=== PATIENT | male | born 1960 | race Caucasian/White ===

== ENCOUNTER 2019-06-26 11:14 | Inpatient (IN) | payer MEDICARE, SELFPAY ==
[2019-06-26 11:27] VITALS: BP 135/105; PULSE 124; RESP 18; O2SAT 100; BMI 23.0
--- NOTE | 2019-06-26 11:29 | ED_ITS ---
Entered by Caitie Gonzalez, acting as scribe for HPI - Fall General: Chief Complaint: Fall Stated Complaint: Leg pain Time Seen by Provider: 06/26/19 11:22 Source: patient Mode of arrival: ambulatory Limitations: no limitations History of Present Illness: HPI Narrative: 59 yo Male presents to ED with complaint of leg pain post fall. Pt states that he has sciatic nerve pain but yesterday he was going out the door and the wind caught the door and threw him on the ground. Pt states that he landed on his butt bone and hasn't been able to walk for a couple of days. Pt's friend states that the patient has been unable to lay flat at home. Pt states that he had a steroid shot for his sciatic nerve pain in the last week. MD complaint: fall Onset (ago): day(s) (2) Fall from: standing Fall witnessed: no Place fall occurred: home Loss of consciousness: None Prolonged down time: minute(s) (30) Symptoms prior to fall: none Location of injury: buttocks Location of injury - extremities: Left: thigh Severity: severe Associated symptoms-after fall: Reports difficulty walking; Denies abdominal pain, chest pain or neck pain Review of Systems General: Reports: 10 or more systems reviewed and unremarkable except in HPI and below Const: Denies: fever, chills or body aches Eyes: Denies: change in vision, blurry vision or blind spots ENMT: Denies: throat pain, enlarged tonsils, painful swallowing, hoarseness, mouth pain or swelling of lips/tongue Card: Denies: chest pain, palpitations, irregular heart rhythm, edema or swelling of feet/ankles Resp: Denies: shortness of breath, productive cough or non-productive cough GI: Denies: abdominal pain, nausea or vomiting : Denies: flank pain, painful urination, urinary frequency, urinary urgency or urinary hesitancy Musc: Reports: extremity pain; Denies: neck pain, back pain or extremity swelling Skin/Breast: Denies: rash, itching or redness Neuro: Reports: difficulty walking Endo: Denies: excessive urination, excessive thirst or tired all the time PFSH ED PFSH: Statuses (acute, chronic, etc) shown below reflect problem list status as previously entered and may not be historically accurate Social History (Updated 01/17/20 @ 10:39 by HÉCTOR Cardenas Smoking and tobacco status: current every day smoker Physical Exam Const: COMMON NORMALS: average body habitus, oriented x3, no limitations, heal thy appearing, alert and well nourished GENERAL APPEARANCE: in distress HENMT: COMMON NORMALS: normocephalic, head/scalp atraumatic and external ears normal HEAD & SCALP: normocephalic and atraumatic NOSE: external nose normal and nasal mucous membranes and turbinates normal EXTERNAL EAR: Yes external ears normal EXTERNAL AUDITORY CANAL: EAC's normal TYMPANIC MEMBRANE: TM's normal bilaterally Eye: COMMON NORMALS: PERRL, EOMs intact bilaterally, conjunctivae normal and no scleral icterus CONJUNCTIVA: Yes conjunctivae normal PUPIL: Yes PERRL DIRECT OPHTHALMOSCOPY: Yes no papilledema and Yes fundi normal bilaterally Neck/C-Spine: COMMON NORMALS: full ROM, supple, no meningeal signs, no JVD and no carotid bruits Chest: COMMONS NORMALS: inspection of chest normal and palpation of chest normal Resp: COMMON NORMALS: normal respiratory effort, no retractions, no use of accessory muscles, clear to auscultation bilaterally and percussion normal AUSCULTATION: clear to auscultation bilaterally PERCUSSION: percussion normal Cardio: COMMON NORMALS: no JVD, regular rate, regular rhythm, S1 normal heart sound, S2 normal heart sound, no gallops, no clicks, no murmurs, no rub and peripheral pulses 2+ throughout RATE: regular rate RHYTHM: regular rhythm HEART SOUNDS: S1 normal and S2 normal PERIPHERAL PULSES: pulses 2+ throughout GI: COMMON NORMALS: normal to inspection, nondistended, normoactive bowel sounds, soft to palpation, non-tender, no hepatosplenomegaly, no masses and no bruits PALPATION: Yes soft and Yes no hepatosplenomegaly : COMMON NORMALS: Yes no CVA tenderness BLADDER/KIDNEY EXAM: Yes no CVA tenderness Back/Pelvis: COMMON NORMALS: no CVA tenderness, thoracic and lumbar spine normal to inspection and no thoracic nor lumbar tenderness PELVIS: Yes no pain with lateral compression Extremity: COMMON NORMALS: normal to inspection, full ROM, normal capillary refill, no joint enlargement, no clubbing, cyanosis or edema, no calf tenderness and no pedal edema LEFT LOWER EXTREMITY: Yes hip joint Left hip: Yes pal pation (tender in the left hip laterally and posteriorly) Neuro: COMMON NORMALS: oriented x3 SENSORIUM/ORIENTATION: Yes alert MENINGEAL SIGNS: Yes no meningeal signs Skin: COMMON NORMALS: no rashes or lesions noted, no wounds, skin turgor normal, no jaundice, no petechiae and no mottling GENERAL SKIN EXAM: no rashes or lesions noted and turgor normal Course Consultations: Consultation #1: Dr. Fischer, orthopedic surgeon. Patient will need surgery. Since he had lunch today he will planning for surgery in the morning. N.p.o. from midnight. Time: 13:20 Consultation #2: Dr. Shah, hospitalist. He kindly accepted the patient to his service. Time: 13:25 Vital Signs: Vital signs: Vital Signs Pulse Rate 124 H 06/26/19 11:27 Respiratory Rate 18 06/26/19 11:27 Blood Pressure 135/105 06/26/19 11:27 Pulse Oximetry 100 06/26/19 11:27 MDM - Fall MDM Narrative: Medical decision making narrative: Patient with a left subcapital femoral fracture. He is admitted to the hospitalist service for surgery in the morning as he has had lunch today. Pain controlled in the emergency department. Lab Data: Labs: Lab Results 06/26/19 06/26/19 Range/Units 11:58 11:58 WBC 14.6 H (4.0-10.0) 10^3/ uL RBC 5.07 (4.1-5.3) 10^6/u L Hgb 13.8 (11.7-16.6) g/dL Hct 40.7 L (42.0-52.0) % MCV 80.3 (80-94) fL MCH 27.2 L (28.0-34.0) pg MCHC 33.9 (30.0-36.0) g/dL RDW 12.8 (12.1-15.1) % Plt Count 422 H (130-400) 10^3/c mm MPV 9.0 (7.4-10.4) fL Neut % (Auto) 79.5 % Lymph % (Auto) 7.8 % [place] % (Auto) 11.9 % Eos % (Auto) 0.0 % Baso % (Auto) 0.3 % Neut # (Auto) 11.7 H (1.8-7.7) 10^3/u L Lymph # (Auto) 1.1 (0.8-4.8) 10^3/u L [place] # (Auto) 1.7 H (0.2-0.9) 10^3/u L Eos # (Auto) 0.0 (0.0-0.8) 10^3/u L Baso # (Auto) 0.0 (0.0-0.1) 10^3/u L Nucleated RBC % (a uto) 0 % Nucleated RBCs # 0.0 /100WBC Sodium 131 L (136-145) mmol/L Potassium 3.8 (3.5-5.1) mmol/L Chloride 93 L (98-107) mmol/L Carbon Dioxide 22 (22-29) mmol/L Anion Gap 19.8 H (5-19) BUN 16 (6-20) mg/dL Creatinine 0.8 (0.7-1.2) mg/dL GFR Calculation 99.3 (90-130) mL/min Glucose 120 H (74-109) mg/dL Calcium 10.8 H (8.6-10.0) mg/Dl Total Bilirubin 1.0 (0.15-1.2) mg/dL AST 39 (0-40) U/L ALT 24 (0-41) U/L Alkaline Phosphata se 107 (40-130) IU/L Total Protein 7.9 (6.6-8.7) g/dL Albumin 4.4 (3.5-5.2) g/dL Globulin 3.5 (1.3-4.6) g/dL Imaging Data^: XR Left Hip: Radiologist's impression: [address] [address] XRay Report Signed Patient: Jhony Terrell #: [id number] : 1Acct#:[id number] Age/Sex: 59 / MADM Date: 06/26/19 Loc: ERRoom/Bed: Attending Dr: Ordering Provider/Ordering MD: Saba Khoury MD, [facility] Date of Service: 06/26/19 Procedure(s): XR hip LT 2-3V wo/w pel* [id number] Accession Number(s): [id number] Report Number: [id number] WS: [id number] LEFT HIP HISTORY: fall, hip pain. COMPARISON: None available. LEFT hip: Acute subcapital hip fracture. Fracture is impacted and demonstrates slight superior elevation. Superior displacement by 7 mm. Bones are mildly osteopenic. XR/XR hip LT 2-3V wo/w pel* [id number] IMPRESSION: Acute subcapital hip fracture with mild impaction and superior placement. 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
--- NOTE | 2019-06-26 11:35 | XR_ITS ---
WS: [id number] LEFT HIP HISTORY: fall, hip pain. COMPARISON: None available. LEFT hip: Acute subcapital hip fracture. Fracture is impacted and demonstrates slight superior elevat ion. Superior displacement by 7 mm. Bones are mildly osteopenic. XR/XR hip LT 2-3V wo/w pel* [id number] IMPRESSION: Acute subcapital hip fracture with mild impaction and superior placement.
[2019-06-26 12:07] LABS: Basophils % 0.3 %; Hematocrit 40.7 % (42.0-52.0); Hemoglobin 13.8 g/dL (11.7-16.6); Lymphocytes # 1.1 10^3/uL (0.8-4.8); Lymphocytes % 7.8 %; Mean Corpuscular HGB Conc 33.9 g/dL (30.0-36.0); Mean Corpuscular Hemoglobin 27.2 pg (28.0-34.0); Mean Corpuscular Volume 80.3 fL (80-94); Monocytes # 1.7 10^3/uL (0.2-0.9); Monocytes % 11.9 %; Neutrophils # 11.7 10^3/uL (1.8-7.7); Neutrophils % 79.5 %; Nucleated Red Blood Cells % 0 %; Platelet Count 422 10^3/cmm (130-400); Red Blood Count 5.07 10^6/uL (4.1-5.3); Red Cell Distribution Width 12.8 % (12.1-15.1); White Blood Count 14.6 10^3/uL (4.0-10.0)
[2019-06-26] MEDS: ketorolac 30 mg/mL INJ IVP (12:21)
[2019-06-26] MEDS: orphenadrine 30 mg/mL Inj 2 mL 60 MG IV (12:23)
[2019-06-26 13:03] LABS: Potassium 3.8 mmol/L (3.5-5.1); Sodium 131 mmol/L (136-145)
[2019-06-26 13:04] LABS: Alanine Aminotransferase 24 U/L (0-41); Albumin Level 4.4 g/dL (3.5-5.2); Alkaline Phosphatase 107 IU/L (40-130); Anion Gap 19.8 (5-19); Aspartate Amino Transferase 39 U/L (0-40); Blood Urea Nitrogen 16 mg/dL (6-20); Calcium 10.8 mg/Dl (8.6-10.0); Carbon Dioxide 22 mmol/L (22-29); Chloride 93 mmol/L (98-107); Globulin 3.5 g/dL (1.3-4.6); Glomerular Filtration Rate 99.3 mL/min (90-130); Glucose 120 mg/dL (74-109); Total Protein 7.9 g/dL (6.6-8.7)
--- NOTE | 2019-06-26 13:29 | PC.NURSE ---
Patient offered Morphine at this time. Patient states he feels like he is doing okay at this time, but this nurse will hold morphine incase he needs it later.
--- NOTE | 2019-06-26 14:23 | PC.NURSE ---
Patient stated he wanted to lay on the floor to get more comfortable because the mattress set up to high on the stretcher for him to get into the bed comfortably and he did not want to sit in the chair. Patient laid himself in the floor and states he prefers to stay in the floor. Offered to help patient into the bed, patient declined.
[2019-06-26 15:00] VITALS: BP 141/108; PULSE 96; RESP 16; O2SAT 99
--- NOTE | 2019-06-26 15:19 | ECG_ITS ---
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 [email or web address]
--- NOTE | 2019-06-26 15:19 | XR_ITS ---
WS: [id number] CHEST, 1 view. HISTORY: Pneumonia. COMPARISON: None available. Lungs are clear and well expanded. No pleural effusion or pneumothorax. Cardiac size: Normal. Mediastinum/Aorta: Normal mediastinum. No osseous abnormality seen. XR/XR chest 1V [id number] IMPRESSION: Unremarkable chest.
--- NOTE | 2019-06-26 15:20 | P.HP_ITS ---
Providers/Chief Complaint Primary Care Provider: Trupti Olivia Chief Complaint: Leg pain History of Present Illness Jhony Terrell is a 59 year old male past medical history of chronic smoking, THC use, depression, hypertension, CKD stage II who presents to the ER today after reportedly having a mechanical fall yesterday when he landed on his right side. Patient states since then he has been having pain in the left side of his hip so he came to the ER today. In the ER he was found to have left subcapital fracture of the hip. He denies of having any blood or difficulty in stream of urination, paresthesia, no numbness or tingling down the foot, abdominal pain, change in bowel movements, loss of weight. He does state that he has been having back pain with possible sciatica kind of pain going down the left side of his hip for which he thought 80 mg of methylprednisolone shot for the first time on June 21 by his primary care physician. He is also complaining of mild cough with greenish colored expectoration for last 4 days along with some runny nose but denies of having any fever, sick contacts or recent travels. Review of Systems General: Reports: 10 or more systems reviewed and unremarkable except in HPI and below Const: Denies: fever, chills, body aches, change in appetite, malaise, night sweats, diaphoresis, change in sleep pattern, daytime sleepiness or snoring Eyes: Denies: change in vision, blurry vision, photophobia, eye discomfort or eye discharge ENMT: Reports: nasal congestion and post nasal drip; Denies: throat pain, enlarged tonsils, hoarseness, mouth pain, oral sores/lesions, dry mouth or tinnitus Card: Denies: chest pain, palpitations, irregular heart rhythm, edema, swelling of feet/ankles, lightheadedness, syncope, pre-syncope, shortness of breath on exertion, shortness of breath when lying down, leg pain with exertion or bluish discoloration of hands/feet Resp: Reports: productive cough; Denies: shortness of breath, non-productive cough, wheezing, stridor, pain on inspiration, change in phlegm color, coughing up blood or chest congestion GI: Denies: abdominal pain, nausea, vomiting, vomiting blood, coffee grounds in vomit, difficulty swallowing, heartburn/indigestion, diarrhea, constipation, bloating, cramping, change in bowel habits, painful bowel movements, blood in stool or black tarry stool : Denies: flank pain, difficulty urinating, painful urination, urinary frequency, urinary urgency, urinary hesitancy, urinary dribbling, difficulty starting urination, change in urine stream, nighttime urination or blood in urine Musc: Reports: back pain, extremity pain and limited range of motion; Denies: neck pain, joint pain, joint swelling, redness or joint stiffness Skin/Breast: Denies: rash, itching or redness Neuro: Denies: headache, numbness in extremities, weakness in extremities, changes in sensation, lack of coordination, difficulty walking, frequent falls, dizziness, vertigo, confusion, slurred speech, difficulty communicating thoughts or seizure-like activity Psych: Denies: anxiety, depression, mood swings, panic attacks, hopelessness or irritability Endo: Denies: excessive urination, excessive thirst, tired all the time, cold intolerance, excessive sweating, flushing or heat intolerance Jey/Lymph: Denies: easy bruising or easy bleeding All/Imm: Denies: tongue swelling, facial swelling or acute wheezing Medications/Allergies Home Medications Medication Instructions Recorded Confirmed Last Taken Type aspirin [Aspir-81] 81 mg PO DAILY 06/26/19 06/26/19 Unknown History Allergies Allergy/AdvReac Type Severity Reaction Status Date / Time No Known Allergies Allergy Verified 06/21/19 10:37 PFSH Acute PFSH: Statuses (acute, chronic, etc) shown below reflect problem list status as previously entered and may not be historically accurate Medical History Anxiety and depression (Acute) CKD (chronic kidney disease), stage II (Acute) Contact with and (suspected) exposure to environmental tobacco smoke (acute) (c hronic) (Acute) Hx of anemia of chronic renal failure (Acute) Hypertension (Acute) Type 2 diabetes mellitus (Acute) Surgical History (Updated 06/27/19 @ 13:39 by Andrea Fischer MD) Hx of hand surgery (Acute) Left Social History Smoking and tobacco status: current every day smoker cigarettes Alcohol intake: never Household members: family Vitals/I&O/Wt Last Vital Signs Pulse 124 H 06/26/19 11:27 Resp 18 06/26/19 11:27 BP 135/105 06/26/19 11:27 Pulse Ox 100 06/26/19 11:27 Weight last 48 hrs Weight 77.111 kg Physical Exam Narrative: EXAM NARRATIVE: General: No acute distress, AO x3, dehydrated, anxious HEENT: PERRLA, pupils bilaterally equal and reactive Chest: Bronchial breath sounds, bilateral crackles diffuse all over the lung joshua, equal good air entry bilaterally CVS: S1-S2 regular, no murmurs, no tachycardia, no gallops, no rubs Abdomen: Soft, nontender, no organomegaly, bowel sounds present Neuro: No focal deficits, no facial deformity, AO x3, power 5/5 in all limbs Extremities: Decreased range of motion on the left leg, pulses bilaterally equal Data : 06/27/19 05:45 06/27/19 05:45 A&P Assessment and plan (1) Closed hip fracture requiring operative repair: Status: Resolved Qualifiers: Encounter type: initial encounter Laterality: left Qualified Code(s): S72.002A - Fracture of unspecified part of neck of left femur, initial encounter for closed fracture Code(s): S72.009A - Fracture of unspecified part of neck of unspecified femur, initial encounter for closed fracture (2) Hypertension: Status: Acute Code(s): I10 - Essential (primary) hypertension (3) CKD (chronic kidney disease), stage II: Status: Acute Code(s): N18.2 - Chronic kidney disease, stage 2 (mild) (4) Contact with and (suspected) exposure to environmental tobacco smoke (acute) (chronic): Status: Acute Code(s): Z77.22 - Contact with and (suspected) exposure to environmental tobacco smoke (acute) (chronic) Additional A&P Information Hip fracture: We will get CT head. Orthopedics has already been consulted by ER. Plan for surgical correction zach rr morning. We will follow Dr. Fischer's recommendations. Hold off on DVT prophylaxis for now and will start after surgery. Oxycodone for pain relief. We will try to avoid oversedation. Hypertension: Patient carries a diagnosis of hypertension though does not seem to be on any antihypertensives. We will continue to monitor if blood pressure goes over 150/90 will start on amlodipine accordingly. CKD stage II: Creatinine is at baseline. I have reconciled medication to avoid nephrotoxic drugs. We will check BMP daily. Anemia: We will check iron panel. MCH is low so most likely patient has iron deficiency anemia so we will start patient on oral iron. Chronic back pain: Patient has signs of neuropathy going down the left leg. We will get a CT lumbar spine. Chronic smoker: Have discussed with patient in detail regarding need for cessation of smoking. Patient states he will think about it but is not ready for now. Full code Cardiac diet Physical therapy as per orthopedic team after surgery. DVT prophylaxis as per orthopedic team. Attestations Medical Necessity Statement*: Needs admission for more than 2 midnights for hip fracture. 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
[2019-06-26 15:55] LABS: Alcohol Level < 10 mg/dL (0-10)
[2019-06-26] MEDS: morphine 4 mg/mL SDV 1 mL 6 MG IVP (16:13)
[2019-06-26 16:18] VITALS: BP 141/108; PULSE 98; RESP 18; O2SAT 98
[2019-06-26 16:29] VITALS: BP 141/108; PULSE 98; RESP 16; O2SAT 100
[2019-06-26 17:06] VITALS: BP 159/93; PULSE 100; RESP 18; TEMP 36.6; O2SAT 99
--- NOTE | 2019-06-26 17:15 | PM.CONSULT ---
Providers/Reason For Consult Consulting Physican/Specialty*: Orthopedic surgery Reason for Consult*: Left femoral neck fracture Requesting Physcian: Andrea Fischer MD Attending Physician: Cesar Shah MD Primary Care Provider: Trupti Olivia History of Present Illness History of Present Illness Jhony Terrell is a 59 year old male who fell yesterday edges opening a door that was caught by the wind. He describes landing on his left hip with immediate pain and difficulty bearing weight. He was finally prompted by family to go to the emergency room today where radiographs revealed a displaced left femoral neck fracture. He denies any preceding history of left hip pain. He denies any other extremity pain. 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 Meds/Allergies Home Medications and Allergies Home Medications Medication Instructions Recorded Confirmed Type aspirin [Aspir-81] 81 mg PO DAILY 06/26/19 06/26/19 History Allergies Allergy/AdvReac Type Severity Reaction Status Date / Time No Known Allergies Allergy Verified 06/21/19 10:37 PFSH Acute PFSH: Statuses (acute, chronic, etc) shown below reflect problem list status as previously entered and may not be historically accurate Medical History Anxiety and depression (Acute) CKD (chronic kidney disease), stage II (Acute) Contact with and (suspected) exposure to environmental tobacco smoke (acute) (chronic) (Acute) Hx of anemia of chronic renal failure (Acute) Hypertension (Acute) Type 2 diabetes mellitus (Acute) Surgical History (Updated 06/26/19 @ 15:27 by Cesar Shah MD) Hx of hand surgery (Acute) Left Social History Smoking and tobacco status: current every day smoker cigarettes Number of cigarettes per day: >20 Alcohol intake: never Substance/Drug Use: current Other substance/drug use details: THC Household members: family Vitals/I&O/Wt Last Vital Signs Temp 97.9 F 06/26/19 17:06 Pulse 100 06/26/19 17:06 Resp 18 06/26/19 17:06 BP 159/93 06/26/19 17:06 Pulse Ox 99 06/26/19 17:06 Weight last 48 hrs Weight 170 lb Physical Exam Narrative: EXAM NARRATIVE: The patient is a fit male who appears a bit older than stated age. He has thin and laying on his right side with his left hip exposed. He has exquisite pain with range of motion of his left hip. He has a palpable left dorsalis pedis pulse. He will flex and extend his toes and his ankle without any motor deficits. His sensation is intact to light touch. He has no pain to motion of his right lower or both upper extremities. A&P Assessment and plan (1) Displaced fracture of left femoral neck: I discussed options with the patient. I told him with a displaced fracture now 24 hours out the chances of this being successfully treated with open reduction internal fixation are minimal. I think the most reliable option would be some form of hip arthroplasty. The patient is still active working on his feet and I think the best choice would be a total hip arthroplasty I discussed total hip arthroplasty with the patient in great detail. I made her aware of risk with the procedure. I discussed risk of a possible instability or dislocation. I discussed the possibility of continued pain. I discussed risk of component failure loosening the need for revision. I discussed risk of deep venous thromboses and pulmonary emboli even with anticoagulation. I discussed anesthetic risk with surgery. The patient understands all her alternativesand agrees to proceed with total hip arthroplasty. They expressed good understanding was offered the opportunity for her questions to be answered. 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
[2019-06-26] MEDS: enoxaparin 40 mg/0.4 mL Syringe SUBCUT (17:48)
[2019-06-26] MEDS: sodium chloride 0.9% 1,000 ML 75 ML IV (17:48)
[2019-06-26] MEDS: morphine 4 mg/mL SDV 1 mL 1 MG IVP (18:12)
[2019-06-26 18:55] LABS: Estmated Average Glucose 131; Hemoglobin A1C 6.2 % (4.0-6.0)
[2019-06-26 20:00] VITALS: BP 134/85; PULSE 104; RESP 20; TEMP 36.7; O2SAT 96
[2019-06-27] VITALS (25 sets, daily range): BP systolic 140–177; BP diastolic 76–109; PULSE 64–91; RESP 16–20; TEMP 36.4–37.1; O2SAT 93–100
[2019-06-27] MEDS: morphine 4 mg/mL SDV 1 mL 1 MG IVP (00:14)
[2019-06-27 05:59] LABS: Basophils % 0.3 %; Eosinophils # 0.1 10^3/uL (0.0-0.8); Eosinophils % 0.6 %; Hematocrit 35.5 % (42.0-52.0); Hemoglobin 11.7 g/dL (11.7-16.6); Lymphocytes # 1.6 10^3/uL (0.8-4.8); Lymphocytes % 15.3 %; Mean Corpuscular Hemoglobin 27.3 pg (28.0-34.0); Mean Corpuscular Volume 82.8 fL (80-94); Monocytes # 1.4 10^3/uL (0.2-0.9); Monocytes % 14.1 %; Neutrophils # 7.1 10^3/uL (1.8-7.7); Neutrophils % 69.3 %; Nucleated Red Blood Cells % 0 %; Platelet Count 294 10^3/cmm (130-400); Red Blood Count 4.29 10^6/uL (4.1-5.3); Red Cell Distribution Width 13.1 % (12.1-15.1); White Blood Count 10.2 10^3/uL (4.0-10.0)
[2019-06-27] MEDS: sodium chloride 0.9% 1,000 ML 75 ML IV (06:01)
[2019-06-27 06:22] LABS: Anion Gap 12.5 (5-19); Blood Urea Nitrogen 14 mg/dL (6-20); Calcium 9.3 mg/Dl (8.6-10.0); Carbon Dioxide 27 mmol/L (22-29); Chloride 99 mmol/L (98-107); Chol HDL Ratio 2.15 mg/dL (1.0-5.00); Cholesterol 133 mg/dL (0-200); Glomerular Filtration Rate 86.7 mL/min (90-130); Glucose 116 mg/dL (74-109); HDL Cholesterol 62 mg/dL (60-100); LDL Cholesterol Calculated 62 mg/dL (50-129); Osmolality Calculated 277 mOsm/kg (285-295); Potassium 3.5 mmol/L (3.5-5.1); Sodium 135 mmol/L (136-145); Triglycerides 46 mg/dL (0-150)
--- NOTE | 2019-06-27 06:27 | ANES.PREANES ---
Pre-Anesthetic Assessment Pre-Anesthetic Assessment: Height/Weight: Height 1.83 m Weight 77.111 kg Temp Pulse Resp BP Pulse Ox 98.2 F 91 16 153/88 98 06/27/19 00:00 06/27/19 00:00 06/27/19 00:14 06/27/19 00:00 06/27/19 00:00 Preop Diagnosis: Left hip fx Proposed Procedure: Operation Date: 06/27/19 07:00 Proposed Procedures p Total Hip Arthroplasty(Left) - Andrea Fischer MD Last Intake: 10:00 Social: Social History: Tobacco Packs per day: 1/4 Pack years: 14 Exam: Pre-Anes Outpt Exam: alert, oriented x 3, clear to auscultation bilaterally and regular rate & rhythm Airway: Submandibular: WNL Cervical ROM: WNL MP: 1 : : Chronic renal Insufficiency Comments: pt denies Anesthetic Plan: ASA status: II Anesthesia: General Meds/Allergies Current Medications: Current Medications Generic Name Dose Route Start Last Admin Trade Name Moq PRN Reason Stop Dose Admin Sodium Chloride 1,000 mls @ 75 ml s/hr 06/26/19 15:30 06/27/19 06:01 Sodium Chloride 0.9% IV 75 mls/hr .[id number] ONUR Administration Morphine Sulfate 1 mg 06/26/19 16:57 06/27/19 00:14 Morphine IVP 1 mg Q4H ONUR Administration PFSH Anesthesia PFSH: Medical History Anxiety and depression (Acute) CKD (chronic kidney disease), stage II (Acute) Contact with and (suspected) exposure to environmental tobacco smoke (acute) (chronic) (Acute) Hx of anemia of chronic renal failure (Acute) Hypertension (Acute) Type 2 diabetes mellitus (Acute) Surgical History (Updated 06/26/19 @ 15:27 by Cesar Shah MD) Hx of hand surgery (Acute) Left Social History Smoking and tobacco status: current every day smoker cigarettes Number of cigarettes per day: >20 Alcohol intake: never Substance/Drug Use: current Other substance/drug use details: THC Household members: family Data Anesthesia CBC & Chem 7: 06/27/19 05:45 06/27/19 05:45 Other Labs: Laboratory Results - last 48 hr 06/26/19 06/26/19 06/26/19 11:58 11:58 11:58 WBC 14.6 H RBC 5.07 Hgb 13.8 Hct 40.7 L MCV 80.3 MCH 27.2 L MCHC 33.9 RDW 12.8 Plt Count 422 H MPV 9.0 Neut % (Auto) 79.5 Lymph % (Auto) 7.8 [place] % (Auto) 11.9 Eos % (Auto) 0.0 Baso % (Auto) 0.3 Neut # (Auto) 11.7 H Lymph # (Auto) 1.1 [place] # (Auto) 1.7 H Eos # (Auto) 0.0 Baso # (Auto) 0.0 Nucleated RBC % (auto) 0 Nucleated RBCs # 0.0 Sodium 131 L Potassium 3.8 Chloride 93 L Carbon Dioxide 22 Anion Gap 19.8 H BUN 16 Creatinine 0.8 GFR Calculation 99.3 Glucose 120 H Estimat Average Glucose Hemoglobin A1c Calculated Osmolality Calcium 10.8 H Total Bilirubin 1.0 AST 39 ALT 24 Alkaline Phosphatase 107 Total Protein 7.9 Albumin 4.4 Globulin 3.5 Triglycerides Cholesterol LDL Cholesterol, Calc HDL Cholesterol LDL/HDL Ratio Cholesterol/HDL Ratio Ethyl Alcohol < 10 06/26/19 06/27/19 06/27/19 11:58 05:45 05:45 WBC 10.2 H RBC 4.29 Hgb 11.7 Hct 35.5 L MCV 82.8 MCH 27.3 L MCHC 33.0 RDW 13.1 Plt Count 294 MPV 9.0 Neut % (Auto) 69.3 Lymph % (Auto) 15.3 [place] % (Auto) 14.1 Eos % (Auto) 0.6 Baso % (Auto) 0.3 Neut # (Auto) 7.1 Lymph # (Auto) 1.6 [place] # (Auto) 1.4 H Eos # (Auto) 0.1 Baso # (Auto) 0.0 Nucleated RBC % (auto) 0 Nucleated RBCs # 0.0 Sodium 135 L Potassium 3.5 Chloride 99 Carbon Dioxide 27 Anion Gap 12.5 BUN 14 Creatinine 0.9 GFR Calculation 86.7 L Glucose 116 H Estimat Average Glucose 131 Hemoglobin A1c 6.2 H Calculated Osmolality 277 L Calcium 9.3 Total Bilirubin AST ALT Alkaline Phosphatase Total Protein Albumin Globulin Triglycerides 46 Cholesterol 133 LDL Cholesterol, Calc 62 HDL Cholesterol 62 LDL/HDL Ratio 1.00 Cholesterol/HDL Ratio 2.15 Ethyl Alcohol Cardiac Studies: No Data to Display
[2019-06-27] MEDS: sodium chloride 0.9% 1,000 ML 30 ML IV (06:39)
[2019-06-27] MEDS: tranexamic acid 1,000 mg/10mL SDV 2000 MG IRRIGATION (08:15)
--- NOTE | 2019-06-27 08:41 | P.OP_ITS ---
Operative Report Date of procedure: 06/27/19 Pre-op Diagnosis: Left femoral neck fracture Post-op diagnosis: same Post-op Findings: Same Procedure Done: Left total hip Implants: Fallentimber total hip arthroplasty consisting of: 1) size 8 secure fit femoral stem, 52 mm ADM acetabular shell, 28 mm standard neck length ceramic femoral head Surgeon: Andrea Fischer Estimated blood loss (mL): 350 Complications: None Findings: The patient had a displaced fracture of the left femoral neck Condition: stable Disposition: PACU Brief History: The patient is a 59-year-old male who fell 2 days ago with a displaced fracture. He was employed and active in total hip arthroplasty was chosen to improve pain and function compared to hemiarthroplasty Procedure: The patient was taken to the operating room and anesthesia provided by the anesthesia service. The patient was placed in the lateral position on a beanbag. A timeout was performed. The patient was draped in the usual fashion. A 15 cm long incision was made beginning just proximal to the greater trochanter and extending posteriorly to a point just distal to the trochanter on the posterior border of the trochanter. Dissection was carried down with electrocautery through the subcutaneous fat to the fascia jerry which was divided proximally and distally with curved scissors. The anterior two thirds of the gluteus medius and minimus were elevated off the hip with electrocautery. The capsule was divided in a H-like fashion. The hip was dislocated and a neck cut made just above the level of the lesser trochanter. Exposure of the acetabulum was facilitated with the acetabular retractors. Remnants of labrum and peripheral osteophytes were removed with electrocautery and a rongeur. A reamer 2 mm under the size the femoral head was utilized to ream medially to the base of the palm and are. Reaming was then increased in 1 mm intervals until a healthy rim a trabecular bone was encountered. A trial ADM cup was placed and its position marked with electrocautery In the acetabulum. A final Fallentimber 52 mm ADM shell was press-fit into place. Attention was then focused on the femur. Sequential reaming was done under power until cortical chatter was encountered. Broaching was then accomplished until a stable broach size was obtained. A trial reduction with the standard head and neck provided excellent stability. The wound was irrigated with saline and antibiotic solution. The final size 8 Fallentimber SecureFit Max stem was press- fit into place. A standard ceramic 28 mm femoral head and standard neck was placed. The hip was reduced. The hip was brought through range of motion and found to be free of impingement and stable. The anterior capsule was reapproximated with 1 Ethibond. The gluteus medius and minimus were repaired through bone with 5 Ethibond and reinforced with 1 Ethibond. The fascial jerry was closed with 1 Ethibond. The subcutaneous tissue closed with 2-0 Vicryl. The skin was closed with skin saul. A sterile dressing was applied. The patient was taken to the recovery room in an abduction pillow in stable condition.
--- NOTE | 2019-06-27 08:55 | XRR_ITS ---
PROCEDURE INFORMATION: Exam: XR Left Hip with Pelvis when Performed Exam date and time: 06/27/2019 9:12 AM Age: 59 years old Clinical indication: Other: Post juan L; Prior surgery; Surgery date: Post-operative (0-2 days); Surgery type: Total L hip arthroplasty; Additional info: Postop L juan TECHNIQUE: Imaging protocol: XR Left hip with pelvis when performed. Views: 2 or 3 views. COMPARISON: CR XR hip LT 2-3V wo/w pel* [id number] 06/26/2019 12:28 PM FINDINGS: Bones/joints: Hip arthroplasty without evidence of acute fracture or dislocation. No paralleling lucencies. Soft tissues: Unremarkable. XR/XR hip LT 2-3V wo/w pel* [id number] IMPRESSION: No acute fracture or dislocation status post hip arthroplasty.
--- NOTE | 2019-06-27 09:05 | PM.PN ---
Subjective Subjective: Interval history: No acute events overnight. Patient seen by orthopedic team. Patient today seen post OR. Sleeping comfortably in bed. Denies of having any nausea, vomiting, shortness of breath complains of mild pain but states this is well controlled. Medications: Reviewed: Yes Vitals/I&O/Wt Last Vital Signs Temp 98.7 F 06/27/19 06:31 Pulse 74 06/27/19 06:31 Resp 18 06/27/19 06:31 BP 140/93 06/27/19 06:31 Pulse Ox 99 06/27/19 06:31 06/26/19 06/27/19 06/27/19 22:59 06:59 14:59 Intake Total 966.25 / 966.25 1260 / 1260 Output Total 0 / 0 Balance 0 / 0 966.25 / 966.25 1260 / 1260 Weight last 48 hrs Weight 77.111 kg Physical Exam Narrative: EXAM NARRATIVE: General: No acute distress, AO x3, dehydrated, anxious HEENT: PERRLA, pupils bilaterally equal and reactive Chest: Bronchial breath sounds, bilateral crackles diffuse all over the lung joshua, equal good air entry bilaterally CVS: S1-S2 regular, no murmurs, no tachycardia, no gallops, no rubs Abdomen: Soft, nontender, no organomegaly, bowel sounds present Neuro: No focal deficits, no facial deformity, AO x3, power 5/5 in all limbs Extremities: Healthy dressing present, pulses bilaterally equal Urinary Catheter Management^: Contreras: Cath Placed During This Visit: no Data : 06/27/19 05:45 06/27/19 05:45 A&P Assessment and plan (1) Closed hip fracture requiring operative repair: Status: Resolved Qualifiers: Encounter type: initial encounter Laterality: left Qualified Code(s): S72.002A - Fracture of unspecified part of neck of left femur, initial encounter for closed fracture Code(s): S72.009A - Fracture of unspecified part of neck of unspecified femur, initial encounter for closed fracture (2) Hypertension: Status: Acute Code(s): I10 - Essential (primary) hypertension (3) CKD (chronic kidney disease), stage II: Status: Acute Code(s): N18.2 - Chronic kidney disease, stage 2 (mild) (4) Contact with and (suspected) exposure to environmental tobacco smoke (acute) (chronic): Status: Acute Code(s): Z77.22 - Contact with and (suspected) exposure to environmental tobacco smoke (acute) (chronic) Additional A&P Information Post total hip arthroplasty: Postop day 0 Physical therapy, pain management as per orthopedics team. Will avoid oversedation. For now pain is well controlled with morphine as needed and hydrocodone as needed. DVT prophylaxis as per orthopedic team. Will check CBC daily. For now continue IV fluids at 80 cc/h. Hypertension: Patient carries a diagnosis of hypertension though does not seem to be on any antihypertensives. We will continue to monitor if blood pressure goes over 150/90 will start on amlodipine accordingly. CKD stage II: Creatinine is at baseline. I have reconciled medication to avoid nephrotoxic drugs. We will check BMP daily. Anemia: We will check iron panel. MCV is low so most likely patient has Chronic smoker: Have discussed with patient in detail regarding need for cessation of smoking. Patient states he will think about it but is not ready for now. Full code Cardiac diet Physical therapy DVT prophylaxis as per orthopedic team. Attestations Medical Necessity Statement*: Patient for postop management of hip fracture. Time Spent in Patient Care: 16 - 35 minutes Coding Level of Care Code Acute Business Management Intern for Gio Hoskins Diagnoses Closed hip fracture requiring operative repair S72.002A Encounter type: initial encounter Laterality: left Hypertension I10 CKD (chronic kidney disease), stage II N18.2 Contact with and (suspected) exposure to environmental tobacco smoke (acute) (chronic) Z77.22
[2019-06-27] MEDS: morphine 4 mg/mL SDV 1 mL 2 MG IVP ×2 (09:56→15:48)
--- NOTE | 2019-06-27 10:10 | SUR.PHASEI ---
0926 PT FLOOR PER BED AWAKE ALERT , PT TEARFUL AT TIMES PT VERN PAIN AND NAUSEA, VSS LT HIP DRESSING D/I FIRST ICE TO HIP ABD PILLOW IN PLACE , X RAYS DONE, IV PATENT 0935 PT AWAKE NOW ANXIOUS TEARFUL, C/O OF PAIN TO LT HIP STATES (IT IS COLD, IT HURTS) PT CARE NURSE AT BEDSIDE, MEDS TO BE GIVEN FOR PAIN, PT GIVEN SIPS OF SODA, NO FAMILY IN HOSPITAL AT THIS TIME, BP 151/76, HR 66, RESP 18, SATS 100% ON 2LNC.
[2019-06-27] MEDS: oxyCODONE 5 mg IR Tab/Cap PO ×4 (10:44→23:04)
[2019-06-27] MEDS: calcium carbonate 500 mg Chew Tablet 1000 MG PO ×2 (10:45→17:51)
[2019-06-27] MEDS: multivitamin therapeutic Tablet 1 TAB PO (10:46)
[2019-06-27] MEDS: cholecalciferol (vitamin D3) 1,000 unit Tablet 1000 UNIT PO (10:46)
[2019-06-27] MEDS: sennosides-docusate Tablet 2 TAB PO ×2 (10:46→17:51)
[2019-06-27] MEDS: chlorhexidine gluconate 0.12% Btl 473 mL 30 ML MUCOUS MEM ×3 (10:47→21:04)
[2019-06-27] MEDS: aspirin 81 mg EC Tablet PO (10:47)
--- NOTE | 2019-06-27 11:58 | PC.CHAP ---
Pastoral Care Encounter/Spiritual Assessment Type of Contact [] Declined door attendant visit [] Patient/Family/Request visit [] Outpatient visit [] Follow-up visit [] Physician referral [] Code/Alert [] Routine visit [] Staff referral [] Actively dying [x] Patient sleeping [] Family support [] [] Out of room [] Palliative care [] [] Receiving care in room [] Pre-surgical visit [] Trauma [] Long length of stay [] ICU visit [] Other: Relational/Emotional Strength [] Patient feels connected with others/family/visitors/staff [] Distress [] Loneliness/isolation [] Abandonment Spirituality of Patient [] Person of Mercedes [] Attends Congregational of their Mercedes [] Believes in Prayer [] Reads Bible or Confucianist materials [] There are Spiritual issues to be addressed Signalling And Communications Engineer Interventions [] Prayer [] Active listening [] Non-anxious presence [] Spiritual/emotional support [] Crisis/trauma care [] Spiritual counseling [] Bereavement support [] Provided bereavement packet [] Provided Bible/devotional materials [] Provided toy/stuffed animal, coloring book to patient or family member [] Completed spiritual assessment [] Provided Communion [] Anointing/Mabel [] Salvation [] Other: Impact on Illness or Injury [] Angry [] Fearful [] Anxious [] Often cries [] Exhaustion [] Unable to work [] Unable to attend hoahaoism [] Unable to walk/stand [] Unable to read [] Unable to drive [] Unable to eat/drink [] Unable to sleep [] Unable to be with family [] Other: Summary Time spent with patient
[2019-06-27] MEDS: iron polysaccharide complex 150 mg Capsule PO (17:51)
[2019-06-27] MEDS: sodium chloride 0.9% 1,000 ML 80 ML IV (17:54)
[2019-06-27] MEDS: ondansetron 2 mg/ML SDV 2 mL 4 MG IVP (23:04)
[2019-06-28] VITALS (9 sets, daily range): BP systolic 143–157; BP diastolic 77–102; PULSE 84–111; RESP 16–21; TEMP 36.6–37.1; O2SAT 93–97
--- NOTE | 2019-06-28 00:21 | PC.NURSE ---
Pt resting in bed with ou closed at this time. Complaints of abd pain, bowel sounds positive, pt reports feeling like he needs to have bowel movement and full of gas. Up to bsc x2 max assist tolerated poorly med amount of liquid bowel movement. Assisted back to bed pt refusing to be turned, not using IS as instructed and will not allow nurse to reapply ice packs. Will attempt again at later time.
--- NOTE | 2019-06-28 00:51 | PC.NURSE ---
pt resting quietly at this time, no further complaints of pain, abd soft not complaining of gas.
[2019-06-28] MEDS: oxyCODONE 5 mg IR Tab/Cap PO ×2 (03:36→09:20)
--- NOTE | 2019-06-28 03:48 | PC.NURSE ---
ice pack changed.
[2019-06-28 05:55] LABS: Basophils % 0.2 %; Eosinophils % 0.1 %; Hematocrit 35.1 % (42.0-52.0); Hemoglobin 11.5 g/dL (11.7-16.6); Lymphocytes # 1.4 10^3/uL (0.8-4.8); Mean Corpuscular HGB Conc 32.8 g/dL (30.0-36.0); Mean Corpuscular Hemoglobin 28.2 pg (28.0-34.0); Mean Platelet Volume 9.3 fL (7.4-10.4); Monocytes # 1.4 10^3/uL (0.2-0.9); Monocytes % 10.4 %; Neutrophils # 10.7 10^3/uL (1.8-7.7); Neutrophils % 78.8 %; Nucleated Red Blood Cells % 0 %; Platelet Count 306 10^3/cmm (130-400); Red Blood Count 4.08 10^6/uL (4.1-5.3); Red Cell Distribution Width 13.1 % (12.1-15.1); White Blood Count 13.6 10^3/uL (4.0-10.0)
--- NOTE | 2019-06-28 06:09 | PC.NURSE ---
Contreras removed, urinal at bs. pt tolerated well and bulb intact
[2019-06-28 06:13] LABS: Anion Gap 12.3 (5-19); Blood Urea Nitrogen 10 mg/dL (6-20); Calcium 8.9 mg/dL (8.5-10.5); Carbon Dioxide 27 mmol/L (22-29); Chloride 96 mmol/L (98-107); Glomerular Filtration Rate 115.8 mL/min (90-130); Glucose 136 mg/dL (74-109); Iron 13 ug/dL (59-158); Osmolality Calculated 272 mOsm/kg (285-295); Potassium 3.3 mmol/L (3.5-5.1); Sodium 132 mmol/L (136-145); Total Iron Binding Capacity 185 mg/dL; Unsaturated Iron Binding 172 ug/dL (112-347)
[2019-06-28] MEDS: sodium chloride 0.9% 1,000 ML 80 ML IV ×2 (07:01→20:40)
[2019-06-28] MEDS: morphine 4 mg/mL SDV 1 mL 1 MG IVP (08:25)
[2019-06-28] MEDS: baclofen 10 mg Tablet PO (08:25)
--- NOTE | 2019-06-28 09:33 | XRR_ITS ---
PROCEDURE INFORMATION: Exam: XR Abdomen, 1 View Exam date and time: 06/28/2019 10:09 AM Age: 59 years old Clinical indication: Abdominal pain; Acute; Prior surgery; Surgery date: Post-operative (0-2 days); Surgery type: Hip replacement TECHNIQUE: Imaging protocol: XR of the abdomen. Views: Frontal supine view of the abdomen. 1 View. COMPARISON: CR XR KUB portable [id number] 11/04/2018 7:08 PM FINDINGS: Gastrointestinal tract: Moderate amount of gas throughout the small bowel and colon with formed stool noted in the rectum. Intraperitoneal space: No obvious free air. Bones/joints: Partially imaged left hip prosthesis. Bones otherwise unremarkable. XR/XR KUB portable [id number] IMPRESSION: 1. Moderate gas throughout the small bowel and colon, correlate for ileus. Pattern not suggestive of mechanical obstruction. 2. Partially imaged new left hip prosthesis.
--- NOTE | 2019-06-28 10:13 | PC.NURSE ---
PATIENT HAVING ABDOMINAL PAIN THIS MORNING, DR. BRAVO NOTIFIED, ABDOMINAL XRAY ORDERED.
--- NOTE | 2019-06-28 11:14 | CT_ITS ---
WS: [id number] CT ABDOMEN AND PELVIS NONCONTRAST HISTORY: ileus, N/V TECHNIQUE: Imaging performed through the abdomen and pelvis. Coronal and sagittal reformats are submi tted. All CT scans at [facility] use at least one of these dose optimization techniques: automated exposure control; mA and/or kV adjustment per patient size (includes targeted exams where d ose is matched to clinical indication); or iterative reconstruction. DLP: 769.3 mGy.cm COMPARISON: 11/06/2018 Lower thorax: Hyperinflated lung bases with no pneumonia. Normal size heart. Small hiatal hernia. Liver: Normal, no mass or intrahepatic dilatation. Gallbladder: Unremarkable. Pancreas: Atrophic pancreas, poorly visualized. Spleen: Splenic granuloma, normal size. Adrenal glands: Normal. Right kidney: Normal size with no stones, masses or atrophy. Left kidney: Normal size with no stones, mass or atrophy. Mild atherosclerosis with no aneurysm. No free fluid, intraperitoneal air or significant lymphadenopathy. GI tract: There is marked distention of the small bowel with fluid. Small bowel loops measure up to 3 .2 cm in diameter. There is also mild colonic distention with fecal material. The appendix is normal. Stomach is also overly distended. Abdominal wall: Intact. Pelvis: Markedly distended urinary bladder. There is a large amount of air in the urinary bladder whi ch is probably from catheterization. No Contreras catheter is present at this time. Osseous structures: Degenerative disc disease is moderate at L5-S1. No osteoblastic or osteolytic bon e disease. Prior LEFT hip arthroplasty. Small amount of air in the soft tissues over the LEFT hip and sutures remain from the recent surgery. CT/CT abdomen pelvis wo con [id number] IMPRESSION: 1. Marked small bowel distention with fluid and constipation. Findings are mos t consistent with an ileus. No site of obstruction is evident. 2. Markedly distended urinary bladder contains air. Air is probably due to rec ent catheter placement. If there is no history of recent instrumentation gas pr oducing organisms should be considered. 3. Bladder is overly distended. 4. Recent postoperative changes of LEFT hip arthroplasty. 5. No renal obstruction. 6. Small hiatal hernia.
[2019-06-28] MEDS: cholecalciferol (vitamin D3) 1,000 unit Tablet 1000 UNIT PO (12:37)
[2019-06-28] MEDS: multivitamin therapeutic Tablet 1 TAB PO (12:37)
[2019-06-28] MEDS: calcium carbonate 500 mg Chew Tablet 1000 MG PO (12:37)
[2019-06-28] MEDS: chlorhexidine gluconate 0.12% Btl 473 mL 30 ML MUCOUS MEM ×2 (12:38→16:45)
[2019-06-28] MEDS: pantoprazole DR 40 mg Tablet PO (12:38)
[2019-06-28] MEDS: amlodipine 10 mg Tablet PO (12:38)
[2019-06-28] MEDS: aspirin 81 mg EC Tablet PO (12:38)
[2019-06-28] MEDS: iron polysaccharide complex 150 mg Capsule PO (12:38)
[2019-06-28] MEDS: sennosides-docusate Tablet 2 TAB PO (12:38)
--- NOTE | 2019-06-28 13:27 | PC.NURSE ---
patient refused all medications other than amlodipine
--- NOTE | 2019-06-28 15:10 | P.PN_ITS ---
Subjective Subjective: Interval history: 59-year-old white male postoperative day 1 status post left total hip arthroplasty for displaced femoral neck fracture performed by Dr. Fischer. Patient with complaints of sore throat after intubation. Vitals/I&O/Wt Last Vital Signs Temp 97.8 F 06/28/19 11:23 Pulse 84 06/28/19 11:23 Resp 16 06/28/19 11:23 BP 153/94 06/28/19 11:23 Pulse Ox 97 06/28/19 11:23 06/28/19 06/28/19 06/28/19 06:59 14:59 22:59 Intake Total 1110 / 3340 340 / 340 Output Total 375 / 1775 Balance 735 / 1565 340 / 340 Physical Exam Const: COMMON NORMALS: no apparent distress and alert EXAM LIMITATIONS: no altered mental status GENERAL APPEARANCE: not lethargic ORIENTATION/CONSCIOUSNESS: Yes awake; not confused, not obtunded and not lethargic Resp: COMMON NORMALS: normal respiratory effort and clear to auscultation bilaterally; negative for no use of accessory muscles AUSCULTATION: clear to auscultation bilaterally, no crackles, no rales, no rhonchi and no wheezes GI: COMMON NORMALS: soft to palpation and non-tender PALPATION: Yes soft Extremity: RIGHT LOWER EXTREMITY: Yes lower leg Right lower leg: Yes special tests Right lower leg special tests: Ruben's sign: Negative LEFT LOWER EXTRE MITY: Yes lower leg Left lower leg: Yes special tests Left lower leg special tests: Ruben's sign: Negative Neuro: SENSORIUM/ORIENTATION: Yes alert and No lethargic Urinary Catheter Management^: Contreras: Cath Placed During This Visit: no Data : 06/29/19 01:04 06/28/19 05:05 Attestations Medical Necessity Statement*: Patient pod #1 s/p left thr for femoral neck fracture. Needs continued hospitalization to ensure able to adequate fluid and food due to sore throat. Needs to demonstrate ability to ambulate safely. Time Spent in Patient Care: 16 - 35 minutes Coding Level of Care Code Established Pt Acute Commercial Credit Reviewer for Chg Fwd Patient Type Established Exam Problem Focused Time Spent (min) 16 Comment post op
--- NOTE | 2019-06-28 15:58 | PM.PN ---
Subjective Subjective: Interval history: No acute events overnight. Post op day 2. States painin hip is better but c/o abd distension and pain in abdomen. Denies any Vomiting but mildly nauseous. Denies any CP, SOB, headache, cough. Medications: Reviewed: Yes Vitals/I&O/Wt Last Vital Signs Temp 97.8 F 06/28/19 11:23 Pulse 84 06/28/19 11:23 Resp 16 06/28/19 11:23 BP 153/94 06/28/19 11:23 Pulse Ox 97 06/28/19 11:23 06/28/19 06/28/19 06/28/19 06:59 14:59 22:59 Intake Total 1110 / 3340 340 / 340 Output Total 375 / 1775 Balance 735 / 1565 340 / 340 Physical Exam Narrative: EXAM NARRATIVE: General: No acute distress, AO x3, dehydrated, anxious HEENT: PERRLA, pupils bilaterally equal and reactive Chest: Bronchial breath sounds, bilateral crackles diffuse all over the lung joshua, equal good air entry bilaterally CVS: S1-S2 regular, no murmurs, no tachycardia, no gallops, no rubs Abdomen: Soft, nontender, no organomegaly, bowel sounds sluggish Neuro: No focal deficits, no facial deformity, AO x3, power 5/5 in all limbs Extremities: Healthy dressing present, pulses bilaterally equal Urinary Catheter Management^: Contreras: Cath Placed During This Visit: no Data : 06/28/19 05:05 06/28/19 05:05 A&P Assessment and plan (1) Closed hip fracture requiring operative repair: Status: Resolved Qualifiers: Encounter type: initial encounter Laterality: left Qualified Code(s): S72.002A - Fracture of unspecified part of neck of left femur, initial encounter for closed fracture Code(s): S72.009A - Fracture of unspecified part of neck of unspecified femur, initial encounter for closed fracture (2) Hypertension: Status: Acute Code(s): I10 - Essential (primary) hypertension (3) CKD (chronic kidney disease), stage II: Status: Acute Code(s): N18.2 - Chronic kidney disease, stage 2 (mild) (4) Contact with and (suspected) exposure to environmental tobacco smoke (acute) (chronic): Status: Acute Code(s): Z77.22 - Contact with and (suspected) exposure to environmental tobacco smoke (acute) (chronic) Additional A&P Information Post total hip arthroplasty: Postop day 2 Physical therapy, pain management as per orthopedics team. Will avoid oversedation. For now pain is well controlled with morphine as needed and hydrocodone as needed. DVT prophylaxis as per orthopedic team. Will check CBC daily. For now continue IV fluids at 80 cc/h. Abdominal discomfort: Check Abd Xray and CT abdomen for possible obstruction. Most likley Ileus. Have asked patient to be more ambulatory. Patient has been lying down in bed. Have asked him to be working physical therapy and sitting in chair. Replete potassium as hypokalemia can be causing mild ileus as well. If no SBO will give regalan. Hypertension: BP better after Amlo this AM.Will c/w same CKD stage II: Creatinine is at baseline. I have reconciled medication to avoid nephrotoxic drugs. We will check BMP daily. Anemia: Due to MAHOGANY. C/w oral iron Chronic smoker: Have discussed with patient in detail regarding need for cessation of smoking. Patient states he will think about it but is not ready for now. Full code Cardiac diet Physical therapy DVT prophylaxis as per orthopedic team. Attestations Medical Necessity Statement*: Post operative care Time Spent in Patient Care: 16 - 35 minutes Coding Level of Care Code Acute Rheostat Assembler for Gio Hoskins Diagnoses Closed hip fracture requiring operative repair S72.002A Encounter type: initial encounter Laterality: left Hypertension I10 CKD (chronic kidney disease), stage II N18.2 Contact with and (suspected) exposure to environmental tobacco smoke (acute) (chronic) Z77.22
[2019-06-28] MEDS: potassium chloride premix 40 MEQ/100 ML PREMIX 25 MEQ IV (16:45)
[2019-06-28] MEDS: metoclopramide 5 mg/mL SDV 2 mL IVP ×2 (16:45→22:15)
--- NOTE | 2019-06-28 20:24 | XRR_ITS ---
PROCEDURE INFORMATION: Exam: XR Chest, 1 View Exam date and time: 06/28/2019 8:47 PM Age: 59 years old Clinical indication: Device placement; Patient HX: Ng tube placement; Additional info: Ng placement TECHNIQUE: Imaging protocol: XR of the chest Views: 1 view. COMPARISON: CR XR chest 1V [id number] 06/26/2019 3:42 PM FINDINGS: Tubes, catheters and devices: Enteric tube tip is over the fundus of the stomach (proximal stomach). Lungs: Unremarkable. No consolidation. Pleural space: Unremarkable. No pleural effusion. No pneumothorax. Heart/Mediastinum: Unremarkable. No cardiomegaly. Bones/joints: Unremarkable. Other findings: Multiple dilated loops of small bowel up to 4 cm consistent with ileus versus obstruction. XR/XR chest 1V portable [id number] IMPRESSION: 1. Enteric tube tip is over the fundus of the stomach (proximal stomach). 2. Multiple dilated loops of small bowel up to 4 cm consistent with ileus versus obstruction.
[2019-06-28] MEDS: cetacaine Spray 5 gm Can 1 SPRAY TOPICAL (20:36)
[2019-06-28] MEDS: ondansetron 2 mg/ML SDV 2 mL 4 MG IVP (20:36)
[2019-06-29] VITALS (13 sets, daily range): BP systolic 129–176; BP diastolic 68–95; PULSE 63–106; RESP 17–20; TEMP 36.6–36.9; O2SAT 95–97
[2019-06-29 01:13] LABS: Hematocrit 40.3 % (42.0-52.0); Hemoglobin 13.3 g/dL (11.7-16.6)
[2019-06-29] MEDS: cetacaine Spray 5 gm Can 1 SPRAY TOPICAL (01:28)
[2019-06-29] MEDS: metoclopramide 5 mg/mL SDV 2 mL IVP (03:08)
[2019-06-29] MEDS: sodium chloride 0.9% 1,000 ML 80 ML IV (04:46)
--- NOTE | 2019-06-29 07:00 | XRR_ITS ---
PROCEDURE INFORMATION: Exam: XR Abdomen, 1 View Exam date and time: 06/29/2019 7:38 AM Age: 59 years old Clinical indication: Prior surgery; Surgery type: Left thr; Patient HX: F/u for sbo/ileus S/P ng tube placement TECHNIQUE: Imaging protocol: XR of the abdomen. Views: Frontal supine view of the abdomen. 1 View. COMPARISON: CR XR KUB portable [id number] 06/28/2019 10:01 AM FINDINGS: Tubes, catheters and devices: Feeding tube courses into the lateral stomach with distal tip not included on the single image obtained. Gastrointestinal tract: Marked small bowel dilatation, in a pattern worrisome for small bowel obstruction. Prominent stool in the rectum. Bones/joints: Left hip arthroplasty. Degenerative change. XR/XR KUB [id number] IMPRESSION: 1. Feeding tube courses into the lateral stomach with distal tip not included on the single image obtained. 2. Marked small bowel dilatation, in a pattern worrisome for small bowel obstruction.
[2019-06-29] MEDS: sennosides-docusate Tablet 2 TAB PO (08:04)
[2019-06-29] MEDS: aspirin 81 mg EC Tablet PO (08:04)
[2019-06-29] MEDS: pantoprazole 40 mg SDV IVP (08:04)
[2019-06-29] MEDS: amlodipine 10 mg Tablet PO (08:04)
[2019-06-29] MEDS: oxyCODONE 5 mg IR Tab/Cap PO (09:37)
--- NOTE | 2019-06-29 12:04 | P.PN_ITS ---
Subjective Subjective: Interval history: 59-year-old white male postoperative day 2 status post left total hip arthroplasty for displaced femoral neck fracture. Patient's developed a postoperative ileus. A nasogastric tube was placed last evening. Nursing reports improved bowel sounds and passing gas today with less abdominal distention. Patient with decreased complaints of throat pain today. We discussed discharge planning patient does not feel he'll be able to go home but would prefer to go to jail facility at time of discharge when medically stable. Medications: Reviewed: Yes Vitals/I&O/Wt Last Vital Signs Temp 98.4 F 06/29/19 11:55 Pulse 106 H 06/29/19 11:55 Resp 18 06/29/19 11:55 BP 142/92 06/29/19 11:55 Pulse Ox 95 06/29/19 11:55 06/28/19 06/29/19 06/29/19 22:59 06:59 14:59 Intake Total 1000 / 1340 648 / 1988 50 / 50 Output Total 600 / 600 1400 / 2000 Balance 400 / 740 -752 / -12 50 / 50 Physical Exam Narrative: EXAM NARRATIVE: 59-year-old white male in no acute distress. Nasogastric tube in place. Neck/C-Spine: COMMON NORMALS: negative for no JVD Resp: COMMON NORMALS: clear to auscultation bilaterally AUSCULTATION: clear to auscultation bilaterally, no crackles, no rales, no rhonchi and no wheezes Cardio: COMMON NORMALS: regular rhythm; negative for no JVD RHYTHM: regular rhythm Extremity: RIGHT LOWER EXTREMITY: Yes lower leg Right lower leg: Yes special tests Right lower leg special tests: Ruben's sign: Negative LEFT LOWER EXTREMITY: Yes hip joint (nursing reports incision intact dressing change earlier today) and Yes lower leg Left lower leg: Yes special tests Left lower leg special tests: Ruben's sign: Negative Psych: COMMON NORMALS: mental status grossly normal and speech normal SPEECH: Yes normal speech THOUGHT PROCESS: No confused Urinary Catheter Management^: Contreras: Cath Placed During This Visit: no Data : 06/29/19 01:04 06/28/19 05:05 Attestations Medical Necessity Statement*: Patient requires continued inpatient level care following left total hip arthroplasty for femoral neck fracture due to ileus. Discussed with patient disposition at discharge patient would like to be discharged to a local [facility]. Time Spent in Patient Care: 16 - 35 minutes (>than 50% of time spent in counselling and/or direct pt care on unit) . Coding Level of Care Code Acute Clinical Molecular Geneticist for Gio Hoskins
--- NOTE | 2019-06-29 12:19 | XRR_ITS ---
PROCEDURE INFORMATION: Exam: XR Chest, 1 View Exam date and time: 06/29/2019 2:33 PM Age: 59 years old Clinical indication: Patient HX: Wheezing. Ng tube in place. ; Additional info: Wheezing, rhonchi TECHNIQUE: Imaging protocol: XR of the chest Views: 1 view. COMPARISON: CR XR chest 1V portable [id number] 06/28/2019 8:33 PM FINDINGS: Tubes, catheters and devices: Termination of the feeding tube in the lateral aspect of the proximal stomach. Lungs: Hyperinflation, without acute airspace disease. Pleural space: No pleural effusion. Heart/Mediastinum: Cardiac silhouette upper limits of normal in size. Bones/joints: Old rib fractures. Mild degenerative change. XR/XR chest 1V portable [id number] IMPRESSION: Hyperinflation, without acute airspace or pleural disease.
--- NOTE | 2019-06-29 12:30 | PC.OT ---
OT tx attempted. Pt sitting up in bed. He has NG tube in place. Pt opens eyes and states OK I guess when asked how he was feeling. Therapist asking pt about his pain level, and other questions, but pt shuts down, closes eyes and does not respond any further with therapist. Therapist left the room and will attempt tx again later if possible.
[2019-06-29 13:04] LABS: Basophils # 0.1 10^3/uL (0.0-0.1); Basophils % 0.3 %; Eosinophils % 0.1 %; Hematocrit 42.7 % (42.0-52.0); Hemoglobin 13.8 g/dL (11.7-16.6); Lymphocytes % 4.9 %; Mean Corpuscular HGB Conc 32.3 g/dL (30.0-36.0); Mean Corpuscular Hemoglobin 27.1 pg (28.0-34.0); Mean Corpuscular Volume 83.9 fL (80-94); Mean Platelet Volume 9.2 fL (7.4-10.4); Monocytes # 1.4 10^3/uL (0.2-0.9); Monocytes % 7.2 %; Neutrophils # 17.2 10^3/uL (1.8-7.7); Nucleated Red Blood Cells % 0 %; Platelet Count 455 10^3/cmm (130-400); Red Blood Count 5.09 10^6/uL (4.1-5.3); Red Cell Distribution Width 13.1 % (12.1-15.1); White Blood Count 19.8 10^3/uL (4.0-10.0)
[2019-06-29 13:07] LABS: Alanine Aminotransferase 14 U/L (0-41); Albumin Level 3.3 g/dL (3.5-5.2); Alkaline Phosphatase 91 IU/L (40-130); Anion Gap 16.7 (5-19); Aspartate Amino Transferase 16 U/L (0-40); Blood Urea Nitrogen 12 mg/dL (6-20); Calcium 9.8 mg/dL (8.5-10.5); Carbon Dioxide 31 mmol/L (22-29); Chloride 95 mmol/L (98-107); Globulin 3.3 g/dL (1.3-4.6); Glomerular Filtration Rate 115.8 mL/min (90-130); Glucose 159 mg/dL (74-109); Potassium 3.7 mmol/L (3.5-5.1); Sodium 139 mmol/L (136-145); Total Bilirubin 0.6 mg/dL (0.15-1.2); Total Protein 6.6 g/dL (6.6-8.7)
--- NOTE | 2019-06-29 17:13 | P.PN_ITS ---
Subjective Subjective: Interval history: Last night NG tube was placed due to persistent normal distention, discomfort, concern for ileus seen on imaging. This morning he is unhappy that he is not able to eat or drink. Explained to him the reasoning behind NG tube, and he is agreeable to continue until we see output is decreasing, he is having no further nausea, with improvement abdominal dis tention, discomfort, at which point may trial clear liquid diet. During the day with noted difficulty urinating, with elevated PVR on assessment. Contreras had to be replaced. Sometime after a nap in the afternoon, reported by RN again unhappy about needing the drains stating that he would rather not live if he is having to have all of them stay in place. Output from NG still reported as 600 mL since 6 AM this morning, however, some of it has been ice chips, and he overall reports significant improvement in abdominal distention. He had a bowel movement yesterday. He request to advance his diet, so NG will be clamped, with trial of clear liquids. Vitals/I&O/Wt Last Vital Signs Temp 98.4 F 06/29/19 15:12 Pulse 86 06/29/19 15:12 Resp 18 06/29/19 15:12 BP 138/76 06/29/19 15:12 Pulse Ox 97 06/29/19 15:12 06/29/19 06/29/19 06/29/19 06:59 14:59 22:59 Intake Total 648 / 1988 50 / 50 Output Total 1400 / 2000 Balance -752 / -12 50 / 50 Physical Exam Const: COMMON NORMALS: no apparent distress and oriented x3 OTHER: Sitting up in chair. NG tube in place. Irritable mood, complaining that he is unable to eat. is at bedside. HENMT: COMMON NORMALS: oropharynx normal Neck/C-Spine: COMMON NORMALS: no JVD Resp: COMMON NORMALS: normal respiratory effort EFFORT & INSPECTION: Yes audible wheezes (Left base) Cardio: COMMON NORMALS: no JVD, regular rhythm, S1 normal heart sound, S2 normal heart sound and no murmurs RHYTHM: regular rhythm HEART SOUNDS: S1 normal and S2 normal GI: COMMON NORMALS: soft to palpation and non-tender INSPECTION: Yes other (Mild distention, reported better than previously. NG tube in place. LIS.) PALPATION: Yes soft Extremity: COMMON NORMALS: no joint enlargement and no pedal edema Neuro: COMMON NORMALS: oriented x3 and moves all extremities Skin: COMMON NORMALS: no rashes or lesions noted GENERAL SKIN EXAM: no rashes or lesions noted Urinary Catheter Management^: Contreras: Cath Placed During This Visit: no Data : 06/29/19 12:31 06/29/19 12:31 A&P Assessment and plan (1) Ileus: NG tube placed last night. With bowel distention on imaging. No point of obstruction seen on CT scan. Ileus. Difficult to determine cause, although perhaps secondary to medications, with noted constipation. Hold further oxycodone as well as baclofen. Discontinued Tums. He is encouraged to mobilize. With improvement in abdominal distention, symptoms significantly this morning after NG tube placement. Also reports having large soft bowel movement ye sterday. Still about 600 mL out since 6 AM this morning, however, he is becoming irritable, requesting NG tube be removed soon as possible. Request to stop IV fluid. Will clamp the tube, since he is feeling trial clear liquids. Hold IVF. Does appear to have urinary retention, with bladder distention on CT yesterday after Contreras removal early in the morning. Required straight cath overnight. T his morning again retaining, perhaps contributing to ileus. Contreras replaced. Will request for UA. Would keep Contreras in place with outpatient follow-up with urology given recurrent retention. Status: Acute Code(s): K56.7 - Ileus, unspecified (2) Wheezes: Wheezing, left lower lung. Chest x-ray assessed. No pneumonia. Emphysema noted on imaging. He denies formal diagnosis of COPD. We will add breathing treatments as needed for possible bronchitis. Would benefit from assessment by PFT once he is out of acute episode of illness. Encourage smoking cessation. Status: Acute Code(s): R06.2 - Wheezing (3) Closed hip fracture requiring operative repair: Mobilize. Contreras had to be replaced due to urinary retention. Pending placement to SNF for postoperative rehabilitation. Status: Resolved Qualifiers: Encounter type: initial encounter Laterality: left Qualified Code(s): S72.002A - Fracture of unspecified part of neck of left femur, initial encounter for closed fracture Code(s): S72.009A - Fracture of unspecified part of neck of unspecified femur, initial encounter for closed fracture (4) Hypertension: At goal. Status: Acute Code(s): I10 - Essential (primary) hypertension (5) CKD (chronic kidney disease), stage II: Status: Acute Code(s): N18.2 - Chronic kidney disease, stage 2 (mild) (6) Contact with and (suspected) exposure to environmental tobacco smoke (acute) (chronic): Encourage smoking cessation. Status: Acute Code(s): Z77.22 - Contact with and (suspected) exposure to environmental tobacco smoke (acute) (chronic) Additional A&P Information Anemia: Due to MAHOGANY. C/w oral iron Reported history of diverticulitis. Discussed with patient and his this was not visualized on current CAT scan. Attestations Medical Necessity Statement*: Continue admission for assessment management of ileus prior to placement to SNF for rehabilitation. Coding Level of Care Code Acute Accounts Specialist for g Fwd Diagnoses Ileus K56.7 Wheezes R06.2 Closed hip fracture requiring operative repair S72.002A Encounter type: initial encounter Laterality: left Hypertension I10 CKD (chronic kidney disease), stage II N18.2 Contact with and (suspected) exposure to environmental tobacco smoke (acute) (chronic) Z77.22
[2019-06-29 18:26] LABS: Lactic Acid 1.7 mmol/L (0.5-2.2)
[2019-06-29 18:42] LABS: Protein Urine Trace (Negative); Specific Gravity, Urine 1.015 (1.005-1.030); Urine Appearance Cloudy (CLEAR); Urine Color Yellow (Yellow); pH Urine 7 (5-7)
[2019-06-29 18:43] LABS: Add Urine Culture? No; Add Urine Microscopic? YES; Amorphous Sediment Urine 2+; Bacteria Urine 1+; Bilirubin Urine 1+ (NEGATIVE); Blood Urine Neg (Negative); Glucose Urine UA Norm (Normal); Ketones Urine 2+ (Negative); Leukocyte Esterase Urine Negative (Negative); Nitrate Urine Negative (Negative); RBC Urine 0-4 /hpf (0-2); Squamous Epithelial Cell Urine 0-4 (0-5); Urobilinogen Urine 1 mg/dL (Negative)
[2019-06-29] MEDS: ipratropium-albuterol 3 mL Neb INHALATION (19:59)
[2019-06-29] MEDS: chlorhexidine gluconate 0.12% Btl 473 mL 30 ML MUCOUS MEM (21:32)
[2019-06-30] VITALS (9 sets, daily range): BP systolic 128–148; BP diastolic 70–84; PULSE 75–92; RESP 16–22; TEMP 36.6–37; O2SAT 94–98
[2019-06-30] MEDS: sodium chloride 0.9% 1,000 ML 80 ML IV (03:20)
[2019-06-30 05:45] LABS: Basophils # 0.1 10^3/uL (0.0-0.1); Basophils % 0.4 %; Eosinophils # 0.2 10^3/uL (0.0-0.8); Eosinophils % 1.4 %; Hematocrit 32.8 % (42.0-52.0); Lymphocytes # 1.2 10^3/uL (0.8-4.8); Lymphocytes % 7.4 %; Mean Corpuscular HGB Conc 33.5 g/dL (30.0-36.0); Mean Corpuscular Hemoglobin 27.8 pg (28.0-34.0); Mean Corpuscular Volume 82.8 fL (80-94); Mean Platelet Volume 9.1 fL (7.4-10.4); Monocytes % 6.6 %; Neutrophils % 83.7 %; Nucleated Red Blood Cells % 0 %; Platelet Count 369 10^3/cmm (130-400); Red Blood Count 3.96 10^6/uL (4.1-5.3); Red Cell Distribution Width 12.9 % (12.1-15.1); White Blood Count 15.5 10^3/uL (4.0-10.0)
[2019-06-30 05:58] LABS: Alanine Aminotransferase 13 U/L (0-41); Albumin Level 2.9 g/dL (3.5-5.2); Alkaline Phosphatase 79 IU/L (40-130); Anion Gap 14.5 (5-19); Aspartate Amino Transferase 17 U/L (0-40); Blood Urea Nitrogen 12 mg/dL (6-20); Calcium 9.1 mg/dL (8.5-10.5); Carbon Dioxide 28 mmol/L (22-29); Chloride 96 mmol/L (98-107); Globulin 2.7 g/dL (1.3-4.6); Glomerular Filtration Rate 138.4 mL/min (90-130); Glucose 115 mg/dL (74-109); Potassium 3.5 mmol/L (3.5-5.1); Sodium 135 mmol/L (136-145); Total Bilirubin 0.6 mg/dL (0.15-1.2); Total Protein 5.6 g/dL (6.6-8.7)
[2019-06-30] MEDS: amlodipine 10 mg Tablet PO (09:52)
[2019-06-30] MEDS: iron polysaccharide complex 150 mg Capsule PO ×2 (09:52→17:38)
[2019-06-30] MEDS: sennosides-docusate Tablet 2 TAB PO ×2 (09:52→17:38)
[2019-06-30] MEDS: aspirin 81 mg EC Tablet PO (09:52)
[2019-06-30] MEDS: pantoprazole 40 mg SDV IVP (09:52)
--- NOTE | 2019-06-30 10:01 | P.PN_ITS ---
Subjective Subjective: Interval history: Overnight NG suction had to be resumed due to again abdominal distention. This morning he is in irritated mood that he would like to eat and have some milk. Explained to him again the reasoning for NG tube given ileus, return of symptoms after clamping. He listened but did not verbalized understanding. Complains about having the Contreras catheter in place. Discussed with him again regarding recurrence of bladder distention. He does report he had a bowel movement today. Says abdominal distention again is better. Discussed with him we will clamp NG tube and trial liquid diet to make sure he does not become symptomatic again. He is unhappy that the tube has to still stay in. Discussed with him it is safer to keep it in for now rather than have to reinsert it in case he becomes symptomatic again. He appears to have understood, although did not reply. He is frustrated that he feels he is done everything right, but still is needing the tubes. Discussed with him that sometimes it may take some time for bowel function to resume. Discussed also that it appears he has urinary retention which is contributing, due to which Contreras catheter will need to stay in. We will start him on a prostate medication I will follow-up with urology in outpatient office to remove the Contreras once it is deemed safe. He verbalized understanding. Vitals/I&O/Wt Last Vital Signs Temp 98.2 F 06/30/19 07:32 Pulse 85 06/30/19 08:52 Resp 16 06/30/19 08:52 BP 147/84 06/30/19 07:32 Pulse Ox 97 06/30/19 08:52 06/29/19 06/30/19 06/30/19 22:59 06:59 14:59 Intake Total 1000 / 1050 360 / 1410 720 / 720 Output Total 900 / 900 1500 / 2400 400 / 400 Balance 100 / 150 -1140 / -990 320 / 320 Physical Exam Const: COMMON NORMALS: no apparent distress and oriented x3 OTHER: Ir ritable. HENMT: COMMON NORMALS: oropharynx normal Neck/C-Spine: COMMON NORMALS: no JVD Resp: COMMON NORMALS: normal respiratory effort and clear to auscultation bilaterally EFFORT & INSPECTION: No audible wheezes (Left base) AUSCULTATION: clear to auscultation bilaterally Cardio: COMMON NORMALS: no JVD, regular rhythm, S1 normal heart sound, S2 normal heart sound and no murmurs RHYTHM: regular rhythm HEART SOUNDS: S1 normal and S2 normal GI: COMMON NORMALS: soft to palpation and non-tender INSPECTION: Yes other (Mild distention, reported better than previously. NG tube in place. LIS.) AUSCULTATION: Yes normoactive bowel sounds PALPATION: Yes soft Extremity: COMMON NORMALS: no joint enlargement and no pedal edema Neuro: COMMON NORMALS: oriented x3 and moves all extremities Skin: COMMON NORMALS: no rashes or lesions noted GENERAL SKIN EXAM: no rashes or lesions noted Urinary Catheter Management^: Contreras: Cath Placed During This Visit: no Data : 06/30/19 05:10 06/30/19 05:10 A&P Assessment and plan (1) Ileus: Yesterday initially improved, however, subsequently with urinary retention, then again abdominal distention and worsening of symptoms. Overnight at NG suction had to be resumed. He was continued on clear liquid diet. Output today likely not accurate. He does report that he walked around, had a large bowel movement. Feels symptoms are better today. Requested nursing staff to clamp the tube. We will continue with liquid diet trial, and if he does well remove NG tube. Continue Contreras in place at this time to decompress urinary bladder. Hold oxycodone as well as baclofen. Discontinued Tums. Mobilize. Status: Acute Code(s): K56.7 - Ileus, unspecified (2) Wheezes: Wheezing, left lower lung. Chest x-ray assessed. No pneumonia. Emphysema noted on imaging. He denies formal diagnosis of COPD. We will add breathing treatments as needed for possible bronchitis. Would benefit from assessment by PFT once he is out of acute episode of illness. Encourage smoking cessation. Status: Acute Code(s): R06.2 - Wheezing (3) Closed hip fracture requiring operative repair: Mobilize. Contreras had to be replaced due to urinary retention. Pending placement to SNF for postoperative rehabilitation. Status: Resolved Qualifiers: Encounter type: initial encounter Laterality: left Qualified Code(s): S72.002A - Fracture of unspecified part of neck of left femur, initial encounter for closed fracture Code(s): S72.009A - Fracture of unspecified part of neck of unspecified femur, initial encounter for closed fracture (4) Hypertension: At goal. Status: Acute Code(s): I10 - Essential (primary) hypertension (5) CKD (chronic kidney disease), stage II: Status: Acute Code(s): N18.2 - Chronic kidney disease, stage 2 (mild) (6) Contact with and (suspected) exposure to environmental tobacco smoke (acute) (chronic): Encourage smoking cessation. Irritable mood, possibly from nicotine withdrawal. Will order as needed patch, nicotine gum. Status: Acute Code(s): Z77.22 - Contact with and (suspected) exposure to environmental tobacco smoke (acute) (chronic) (7) Urinary retention: Yesterday denied prior symptoms retention. Today he does admit that he intermittently has to urinate several times at night. Due to recurrence of retention despite removal of Contreras initially, maintain Contreras in place. Start Flomax. Follow-up with urology in office. No convincing signs of UTI on UA. Status: Acute Code(s): R33.9 - Retention of urine, unspecified Additional A&P Information Anemia: Due to MAHOGANY. C/w oral iron Reported history of diverticulitis. Discussed with patient and his this was not visualized on current CAT scan. Attestations Medical Necessity Statement*: Continue admission for assessment management of ileus, urinary retention. Pending placement to SNF rehabilitation. Coding Level of Care Code Acute Inspector Government Property for g Fwd Diagnoses Ileus K56.7 Wheezes R06.2 Closed hip fracture requiring operative repair S72.002A Encounter type: initial encounter Laterality: left Hypertension I10 CKD (chronic kidney disease), stage II N18.2 Contact with and (suspected) exposure to environmental tobacco smoke (acute) (chronic) Z77.22 Urinary retention R33.9
[2019-06-30] MEDS: chlorhexidine gluconate 0.12% Btl 473 mL 30 ML MUCOUS MEM ×3 (13:03→20:52)
[2019-06-30] MEDS: ketorolac 30 mg/mL INJ 15 MG IVP (13:04)
--- NOTE | 2019-06-30 14:58 | XRR_ITS ---
PROCEDURE INFORMATION: Exam: XR Left Ankle Exam date and time: 06/30/2019 3:01 PM Age: 59 years old Clinical indication: Pain; Ankle; Left; Additional info: Left anterior ankle pain TECHNIQUE: Imaging protocol: XR Left ankle. Views: 3 or more views. COMPARISON: No relevant prior studies available. FINDINGS: Bones/joints: Multi-articular primary osteoarthritic changes including minimal joint space narrowingand marginal osteophyte formations. There is an os trigonum. Soft tissues: 3.4 mm ossification in the soft tissues between the medial malleolus and talus has a chronic appearance and likely represents sequela of chronic injury. There is edema in the soft tissues surrounding the ankle most prominent medially. XR/XR ankle LT min 3V* [id number] IMPRESSION: 1. There is edema in the soft tissues surrounding the ankle most prominent medially. 2. Multi-articular primary osteoarthritic changes as described above. 3. Small ossified density in the soft tissues between the medial malleolus and talus likely represents sequela of chronic injury. No visualized acute fracture.
--- NOTE | 2019-06-30 15:02 | PM.PN ---
Subjective Subjective: Interval history: 59-year-old white male postoperative day 3 status post left total hip arthroplasty for displaced femoral neck fracture. Postoperative course complicated by urinary distention and an ileus. He's had minimal complaints of left hip pain. He states is been able to ambulate weightbearing as tolerated left hip. Today he offers no complaints of pain centered about the anterior aspect of the ankle. No new injury since presenting to the hospital for care. Medications: Reviewed: Yes Vitals/I&O/Wt Last Vital Signs Temp 97.8 F 06/30/19 11:20 Pulse 92 06/30/19 11:20 Resp 20 H 06/30/19 11:20 BP 131/80 06/30/19 11:20 Pulse Ox 98 06/30/19 11:20 06/30/19 06/30/19 06/30/19 06:59 14:59 22:59 Intake Total 360 / 1410 780 / 780 Output Total 1500 / 2400 400 / 400 Balance -1140 / -990 380 / 380 Physical Exam Narrative: EXAM NARRATIVE: 59-year-old white male in no acute distress. Neck/C-Spine: COMMON NORMALS: no JVD Resp: COMMON NORMALS: normal respiratory effort EFFORT & INSPECTION: Yes able to speak in complete sentences Cardio: COMMON NORMALS: no JVD, regular rate and regular rhythm RATE: regular rate RHYTHM: regular rhythm GI: INSPECTION: Yes normal to inspection and No abdominal distension Extremity: RIGHT LOWER EXTREMITY: Yes lower leg Right lower leg: Yes special tests Right lower leg special tests: Ruben's sign: Negative LEFT LOWER EXTREMITY: Yes hip joint Left hip: Yes inspection (left hip dressing clean dry and intact), Yes lower leg Left lower leg: Yes special tests Left lower leg special tests: Ruben's sign: Negative and Yes ankle joint Left ankle: Yes inspection (no bruising or swelling), Yes palpation (tender to palpationover anterior aspect of ankle> over ATFL), Yes neurovascular exam (sensation intact) and Yes special tests Urinary Catheter Management^: Contreras: Cath Placed During This Visit: no Data : 06/30/19 05:10 06/30/19 05:10 Attestations Medical Necessity Statement*: Patient requires continued inpatient level care as he is recovering from the postoperative ileus and urinary retention. He has a new complaint of left ankle pain. This may represent sprain strain of the ankle as result of his hip injury/fall. X-rays will be ordered. I requested portable x-rays and not to be transported down to the x-ray department. Discharge planning on hold until patient's ileus and urinary retention issues resolved x-rays are negative it may be able to be ambulated with a lace up ankle brace. Dr. Fischer will resume orthopedic care for the patient tomorrow on 07/01/2019 Time Spent in Patient Care: less than 15 minutes Coding Level of Care Code Acute Stamping Bench Die Maker for Gio Hoskins
[2019-06-30] MEDS: ipratropium-albuterol 3 mL Neb INHALATION (15:24)
--- NOTE | 2019-06-30 17:45 | PC.NURSE ---
PATIENT BEING VERY RUDE WITH STAFF THIS SHIFT, SAYING THAT WE ARE NOT DOING ANYTHING TO HELP HIM. THIS NURSE HAS EDUCATED PATIENT ON THE REASONING BEHIND WHY WE ARE GIVING HIM CERTAIN MEDICATIONS AND HOW THIS WILL HELP HIM. PATIENT DENIES WANTING TO BE EDUCATED. NG TUBE DISCONTINUED PER DR. BEACH A TOTAL OF 1000ML OUT OF NG THIS SHIFT.
[2019-07-01] VITALS: BP 130/80; PULSE 79; RESP 18; TEMP 37.1; O2SAT 98
[2019-07-01 04:00] VITALS: BP 111/72; PULSE 69; RESP 18; TEMP 36.7; O2SAT 97
[2019-07-01 05:58] LABS: Basophils % 0.3 %; Eosinophils # 0.3 10^3/uL (0.0-0.8); Eosinophils % 2.5 %; Hematocrit 31.2 % (42.0-52.0); Hemoglobin 10.1 g/dL (11.7-16.6); Lymphocytes # 1.3 10^3/uL (0.8-4.8); Lymphocytes % 10.8 %; Mean Corpuscular HGB Conc 32.4 g/dL (30.0-36.0); Mean Corpuscular Volume 83.4 fL (80-94); Monocytes # 0.9 10^3/uL (0.2-0.9); Monocytes % 7.8 %; Neutrophils # 9.2 10^3/uL (1.8-7.7); Neutrophils % 78.2 %; Nucleated Red Blood Cells % 0 %; Platelet Count 393 10^3/cmm (130-400); Red Blood Count 3.74 10^6/uL (4.1-5.3); Red Cell Distribution Width 12.9 % (12.1-15.1); White Blood Count 11.8 10^3/uL (4.0-10.0)
[2019-07-01 06:23] LABS: Anion Gap 14.8 (5-19); Blood Urea Nitrogen 10 mg/dL (6-20); Calcium 8.8 mg/dL (8.5-10.5); Carbon Dioxide 25 mmol/L (22-29); Chloride 100 mmol/L (98-107); Glomerular Filtration Rate 138.4 mL/min (90-130); Glucose 116 mg/dL (74-109); Osmolality Calculated 279 mOsm/kg (285-295); Potassium 3.8 mmol/L (3.5-5.1); Sodium 136 mmol/L (136-145)
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
[2019-07-01 07:53] VITALS: BP 125/67; PULSE 74; RESP 16; TEMP 37.1; O2SAT 95
--- NOTE | 2019-07-01 09:39 | PC.NURSE ---
PATIENT REFUSED ALL HIS MORNING MEDS. PATIENT WAS RESISTANT TO TEACHING OF MEDICATIONS. PHYSICIAN WAS NOTIFIED AND WILL CONTINUE TO MONITOR PATIENT.
[2019-07-01 11:00] VITALS: BP 127/81; PULSE 66; RESP 17; TEMP 36.8; O2SAT 96
--- NOTE | 2019-07-01 11:18 | PM.DCS ---
Discharge Providers Date of Admission: 06/26/19 14:16 Date of Discharge: 07/01/19 Attending Provider at Admission: Cesar Shah MD Attending Provider at Discharge: Marcos Pulido Primary Care Provider: STEFFANIE Bartlett Diagnoses at Discharge Discharge Diagnosis (1) Ileus: Status: Acute (2) Wheezes: Status: Acute (3) Closed hip fracture requiring operative repair: Status: Resolved Qualifiers: Encounter type: initial encounter Laterality: left Qualified Code(s): S72.002A - Fracture of unspecified part of neck of left femur, initial encounter for closed fracture (4) Hypertension: Status: Acute (5) CKD (chronic kidney disease), stage II: Status: Acute (6) Contact with and (suspected) exposure to environmental tobacco smoke (acute) (chronic): Status: Acute (7) Urinary retention: Status: Acute Reason for Visit Reason for Visit: Reason For Visit: Leg pain Hospital Course Hospital Course: 59-year-old gentleman with history of HTN, CKD stage II, smoking addiction, DM 2 was admitted after a fall, with left leg pain, with finding of left hip fracture. He underwent left total hip replacement on 06/27. Was started on amlodipine for uncontrolled hypertension. His postoperative course was complicated by ileus, with abdominal distention, pain requiring placement of NG tube and decompression, as well as urinary retention, with urinary bladder distention for which Contreras catheter had to be replaced. His ileus gradually resolved with conservative measures, Contreras catheter remains in place. He was started on Flomax, although he has not been adherent with taking medications, frequently refusing them in the hospital. Initially plan was for placement to [facility], however, this morning he declines going to SNF, requesting to be discharged as soon as possible home. He states that he will take his medications at home. Home health care service arrangements were being made, however, he declines the service as well. He is instructed to continue taking Flomax, keep Contreras until he can be seen by urology in office, and verbalized understanding. He is instructed to follow-up with his primary care provider and orthopedics. Physical Exam Const: COMMON NORMALS: no apparent distress and oriented x3 OTHER: Irritated. Requesting to be discharged SEPIDEH. HENMT: COMMON NORMALS: oropharynx normal Neck/C-Spine: COMMON NORMALS: no JVD Resp: COMMON NORMALS: normal respiratory effort and clear to auscultation bilaterally EFFORT & INSPECTION: No audible wheezes (Left base) AUSCULTATION: clear to auscultation bilaterally Cardio: COMMON NORMALS: no JVD, regular rhythm, S1 normal heart sound, S2 normal heart sound and no murmurs RHYTHM: regular rhythm HEART SOUNDS: S1 normal and S2 normal GI: COMMON NORMALS: soft to palpation and non-tender INSPECTION: Yes other (Mild distention, reported better than previously. NG tube in place. LIS.) AUSCULTATION: Yes normoactive bowel sounds PALPATION: Yes soft Extremity: COMMON NORMALS: no joint enlargement and no pedal edema OTHER: L thigh wound covered by dressing, no bleeding or strikethrough. No surrounding bruising, erythema. Neuro: COMMON NORMALS: oriented x3 and moves all extremities Skin: COMMON NORMALS: no rashes or lesions noted GENERAL SKIN EXAM: no rashes or lesions noted Urinary Catheter Management^: Contreras: Cath Placed During This Visit: y Discharge Data Data Completed and Pending: Completed Studies During Hospitalization Category Date Time Status CT abdomen pelvis wo con [id number] Rout ine Cat Scan 06/28/19 11:14 Completed XR KUB 13824 Rout ine Exams 06/29/19 07:00 Completed XR KUB portable [id number] Stat Exams 06/28/19 09:33 Completed XR ankle LT min 3 V* [id number] Urgent Exams 06/30/19 14:58 Completed XR chest 1V 14653 Routine Exams 06/26/19 15:19 Completed XR chest 1V jolene ble [id number] Routine Exams 06/29/19 12:19 Completed XR chest 1V jolene ble [id number] Urgent Exams 06/28/19 20:24 Completed XR hip LT 2-3V wo /w pel* [id number] Rout ine Exams 06/27/19 08:55 Completed XR hip LT 2-3V wo /w pel* [id number] Stat Exams 06/26/19 11:35 Completed Labs from last 24 hours 07/01/19 07/01/19 05:17 05:17 WBC 11.8 H RBC 3.74 L Hgb 10.1 L Hct 31.2 L MCV 83.4 MCH 27.0 L MCHC 32.4 RDW 12.9 Plt Count 393 MPV 9.0 Neut % (Auto) 78.2 Lymph % (Auto) 10.8 [place] % (Auto) 7.8 Eos % (Auto) 2.5 Baso % (Auto) 0.3 Neut # (Auto) 9.2 H Lymph # (Auto) 1.3 [place] # (Auto) 0.9 Eos # (Auto) 0.3 Baso # (Auto) 0.0 Nucleated RBC % (a uto) 0 Nucleated RBCs # 0.0 Sodium 136 Potassium 3.8 Chloride 100 Carbon Dioxide 25 Anion Gap 14.8 BUN 10 Creatinine 0.6 L GFR Calculation 138.4 H Glucose 116 H Calculated Osmolal ity 279 L Calcium 8.8 Vitals: Last Vital Signs Temp 98.2 F 07/01/19 11:00 Pulse 66 07/01/19 11:00 Resp 17 07/01/19 11:00 BP 127/81 07/01/19 11:00 Pulse Ox 96 07/01/19 11:00 Discharge Plan Discharge Patient Disposition: Home Health Service Condition: Stable Prescriptions: New oxycodone 5 mg tablet 5 mg PO Q4H PRN (Reason: pain) Qty: 40 RF: 0 tamsulosin 0.4 mg Capsule 0.4 mg PO DAILY Qty: 30 RF: 0 amlodipine 5 mg tablet 5 mg PO DAILY Qty: 30 RF: 0 Continued baclofen 10 mg tablet 10 mg PO TID PRN (Reason: back spasm) Qty: 15 RF: 0 Aspir-81 81 mg Tablet,Delayed Release (Dr/Ec) 81 mg PO DAILY RF: 0 Discharge Orders: Discharge Order (Routine); Ordered 06/28/19 Ordered By: Andrea Fischer Referrals: Trupti Olivia FNP [Primary Care Provider] - 07/11/19 2:30 pm Jamie Acosta MD [Physician] - 1 week (Dr. Acosta's office will call you with an appointment to be seen in 1 week. ) Andrea Fischer MD [Physician] - 07/11/19 11:30 am (You have an appointment with Dr. Fischer on 07/11/19 at 11:30 am) Discharge Diet: Advance as tolerated Discharge Activity: Increase activity as tolerated and As per PT/OT instructions Patient Instructions: Oxycodone/Acetaminophen (By mouth), Tamsulosin (By mouth), Total Hip Replacement (DC), Ileus (DC) Activity Restrictions/Additional Instructions: May shower once incisions completely free of drainage. Discontinue right hip dressing in 24-48 hours. Replaced dressings as needed. Exercises per physical therapy. May discontinue abduction pillow Continue Tylenol as needed for pain. Avoid oxycodone unless absolutely necessary as it may lead to recurrence of ileus. Maintain Contreras catheter in place until seen by urology. Please take your medications including Flomax as they will help with removal of the Contreras catheter. Please stop smoking. Please monitor your blood pressure 3 times daily, record values to bring to your appointment. 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
[2019-07-01 11:22] VITALS: BP 127/81; PULSE 66; RESP 17; TEMP 36.8; O2SAT 96
--- NOTE | 2019-07-01 11:34 | PC.SOCIAL ---
Updated Pg 2 of IMM with patient and provided a copy. He verbalized understanding and had no questions. Initialed, dated, and timed copy in chart.
--- NOTE | 2019-07-01 12:24 | PC.NURSE ---
DISCHARGE SUMMARY PATIENT WAS GIVEN DISCHARGE INSTRUCTION AND TEACHING WAS GIVEN ABOUT TAKING CARE OF [place] CATHETER AND POST OP HIP SURGERY INSTRUCTIONS. PATIENT WAS RESISTANT TO THE TEACHING AND WAS VERY FRUSTRATED WHILE LEAVING THE FACILITY. THE PATIENT WAS THROWING HIS PERSONAL BELONGINGS AROUND THE ROOM. DEESCALATION WAS ATTEMPTED BUT WAS NOT SUCCESSFUL. PATIENT WAS TAKEN BY WHEELCHAIR TO AWAITING VEHICLE. VITALS WITHIN NORMAL LIMITS AND IV DISCONTINUED.
== END 2019-07-01 12:22 | disposition home health service (06) | DRG 470 ==
LOC: ER 13:59 → MEDSURG 16:07
PROVIDERS: Internal Medicine; Orthopaedic Surgery; Admitting Provider Student in an Organized Health Care Education/Training Program; Emergency Provider Family Medicine; Family Provider Family Medicine; PCP Nurse Practitioner; Visit Provider Internal Medicine
PROC: 0SRB03Z Replacement of Left Hip Joint with Ceramic Synthetic Substitute, Open Approach (ICD-10-PCS; CPT 27130; principal; 2019-06-27 07:00)
DX: S72.012A Unspecified intracapsular fracture of left femur, initial encounter for closed fracture (principal); K56.7 Ileus, unspecified; W19.XXXA Unspecified fall, initial encounter; N18.2 Chronic kidney disease, stage 2 (mild); I12.9 Hypertensive chronic kidney disease with stage 1 through stage 4 chronic kidney disease, or unspecified chronic kidney disease; R33.9 Retention of urine, unspecified; S93.402A Sprain of unspecified ligament of left ankle, initial encounter; R06.2 Wheezing; Z57.31 Occupational exposure to environmental tobacco smoke; Z79.899 Other long term (current) drug therapy
CPT/HCPCS: 12345; 36415; 36416; 51702; 51798; 71045; 73502; 73610; 74018; 74176; 80048; 80053; 80061; 80307; 81001; 83036; 83540; 83550; 83605; 85014; 85018; 85025; 93005; 94640; 94664; 96360; 96361; 96365; 96372; 96374; 96375; 97110; 97162; 97167; 97530; 97535; 99282; C1713; C1776; C9113; J0131; J0690; J1100; J1580; J1650; J1885; J2001; J2270; J2360; J2405; J2704; J2710; J2765; J3010; J3480; J3490; J7030

== ENCOUNTER 2019-07-17 12:47 | Emergency (ER) | payer MEDICARE, SELFPAY ==
[2019-07-17 12:50] VITALS: BP 134/93; PULSE 100; RESP 16; TEMP 36.5; O2SAT 98; BMI 23.0
--- NOTE | 2019-07-17 15:03 | PC.NURSE ---
Went into room to irrigate cortes and check urine flow per instructions of KATHRYN Arthur. Patient declined irrigation and stated he just wanted the catheter out. Attempted to educate patient about the probability that he would not be able to void after removing cortes. Patient verbalized understanding but was very sharp and angry with responses. Cortes catheter removed patient tolerated well. Cortes had been leaking and jeans were wet down left leg from leaking of cortes. Disposable scrubs offered to patient but declined. Patient voided < 5cc bright pink colored urine. Again attempted to educated that with the blood and small amount was still very concerned that he would not be able to void. Patient became very agitated. I attempted to explain to him that he needed to follow up with physicians per appointments and he stated he did not know about the appointment. I instructed the patient that his caregiver was aware of the appointments and he stated that woman is not my caregiver she just lives at my house. I told patient that she was aware of the appointments and he said if that was the truth someone should kill that bitch . When I questioned why the patient was so upset with me he picked up all his personal belongings and walked out the emergency department.
--- NOTE | 2019-07-17 15:06 | ED_ITS ---
HPI - Male Genitourinary General: Chief complaint: Urogenital-Male Stated complaint: NEEDS CATH OUT Time Seen by Provider: 07/17/19 14:48 Source: patient Mode of arrival: ambulatory Limitations: no limitations History of Present Illness: HPI Narrative: Patient here wanting his Cortes catheter removed. Patient states the Cortes catheter was placed about 15 days ago following a hip replacement. It was scheduled to be removed [address] Acosta however he cannot find a ride to his appointment. Complaint: other (cortes cath removal) Associated symptoms: Deny nausea or vomiting Review of Systems GI: Denies: abdominal pain, nausea or vomiting : Reports: other (reports leaking around catheter ); Denies: genital pain, genital lesion, testicular pain, testicular mass or scrotal swelling PFSH ED PFSH: Statuses (acute, chronic, etc) shown below reflect problem list status as previously entered and may not be historically accurate Medical History (Updated 07/17/19 @ 14:59 by KATHRYN Arthur) CKD (chronic kidney disease), stage II Contact with and (suspected) exposure to environmental tobacco smoke (acute) (chronic) Diverticulitis Hx of anemia of chronic renal failure Hx of fracture of hip Surgical History (Updated 07/13/19 @ 07:56 by STEFFANIE Bartlett) History of left hip replacement Hx of hand surgery Left Social History Smoking and tobacco status: current every day smoker cigarettes Alcohol intake: never Household members: family Physical Exam Const: COMMON NORMALS: no apparent distress, oriented x3, no limitations and alert GI: COMMON NORMALS: normal to inspection, nondistended, normoactive bowel sounds, soft to palpation and non-tender PALPATION: Yes soft : OTHER: pt with urine soaking his jeans; leaking around his catheter; not much urine in his bag Neuro: COMMON NORMALS: oriented x3 SENSORIUM/ORIENTATION: Yes alert Course Vital Signs: Vital signs: Vital Signs Temperature 97.7 F 07/17/19 12:50 Pulse Rate 100 07/17/19 12:50 Respiratory Rate 16 07/17/19 12:50 Blood Pressure 134/93 07/17/19 12:50 Pulse Oximetry 98 07/17/19 12:50 MDM - Male MDM Narrative: Medical decision making narrative: pt requests we remove catheter; he does not want any other form of evaluation or replacement of catheter; does not want to stay to make sure he can urine on his own; once we did remove it, he left AMA Discharge Plan Discharge Patient Disposition: Left Against Medical Advice Clinical Impression: Cortes catheter in place prior to arrival, Encounter for Cortes catheter removal Condition: Stable Prescriptions: No Action baclofen 10 mg tablet 10 mg PO TID PRN (Reason: back spasm) Qty: 15 RF: 0 tamsulosin 0.4 mg Capsule 0.4 mg PO DAILY Qty: 30 RF: 0 amlodipine 5 mg tablet 5 mg PO DAILY Qty: 30 RF: 0 Discharge Orders: Discharge Order (Routine); Ordered 07/17/19 Ordered By: Roya Casper Referrals: Emi Mccarty MD [Family Provider] - Trupti Olivia FNP [Primary Care Provider] - Activity Restrictions/Additional Instructions: As discussed you wanted your Cortes catheter removed and no other evaluation. Ideally we would keep you in the emergency department to make sure you could urinate on your own but again you have refused this. You need to return for inability to urinate, abdominal pain, fevers greater than 100.4, or any other concerns you may have. 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
== END 2019-07-17 15:17 | disposition left against medical advice (07) ==
PROVIDERS: Emergency Provider Physician Assistant; Family Provider Family Medicine; PCP Nurse Practitioner
DX: Z45.2 Encounter for adjustment and management of vascular access device (principal); N18.3 Chronic kidney disease, stage 3 (moderate); F17.210 Nicotine dependence, cigarettes, uncomplicated; Z96.642 Presence of left artificial hip joint; Z53.29 Procedure and treatment not carried out because of patient's decision for other reasons
CPT/HCPCS: 99281; 99282

== ENCOUNTER 2019-10-22 12:19 | Emergency (ER) | payer MEDICARE, SELFPAY ==
[2019-10-22 12:20] VITALS: BP 133/93; PULSE 83; RESP 17; TEMP 36.6; O2SAT 98
--- NOTE | 2019-10-22 12:27 | ED_ITS ---
HPI - Chest Pain General: Chief Complaint: Chest Pain Stated Complaint: cp Time Seen by Provider: 10/22/19 12:22 History of Present Illness: HPI narrative: Patient is a 59-year-old gentleman who presents today with chest pain. He reports that he is been having chest pain off and on since yesterday. It is definitely worse with exertion. He gets short of breath with the chest pain. He denies lightheadedness, diaphoresis, vomiting, palpitations. He does not have a personal history of heart disease but his mother and father both had heart attacks in their 50s. He is a smoker, pack per day. He says that he was walking to urgent care to be seen for his chest pain when the police apparently could tell he was in distress and called an ambulance for him. He arrived by ambulance and is currently pain-free. complaint: chest pain Onset (ago): day(s) (1) Timing of current episode: episodic Onset: during exertion Pain location: substernal Pain radiation: none Severity: severe Quality: tightness and aching Relieving factors: rest Exacerbating factors: exertion Associated symptoms: Reports dyspnea; Deny abdominal pain, fever(s), nausea, palpitations or vomiting Review of Systems General: Reports: 10 or more systems reviewed and unremarkable except in HPI and below Const: Denies: fever(s), chills or change in weight Card: Reports: chest pain; Denies: palpitations, irregular heart rhythm, swelling of feet/ankles or lightheadedness Resp: Reports: dyspnea and productive cough (Smoker) GI: Denies: abdominal pain, nausea or vomiting : Denies: difficulty urinating Neuro: Reports: headache(s) (Pressure in his head) Jey/Lymph: Denies: easy bruising or easy bleeding [facility] ED PFSH: Medical History CKD (chronic kidney disease), stage II Contact with and (suspected) exposure to environmental tobacco smoke (acute) (chronic) Diverticulitis Hx of anemia of chronic renal failure Hx of fracture of hip Surgical History History of left hip replacement Hx of hand surgery Left Family History Other Cancer Social History Smoking and tobacco status: current every day smoker cigarettes Alcohol intake: never Household members: family Physical Exam Const: COMMON NORMALS: no acute distress, average body habitus, patient oriented x3, no limitations and healthy appearing GENERAL APPEARANCE: anxious HENMT: FACE & SINUS: normal facial exam Neck/C-Spine: COMMON NORMALS: full ROM, no lymphadenopathy and no JVD Chest: COMMONS NORMALS: normal inspection of the chest Resp: COMMON NORMALS: normal respiratory effort, No retractions, No use of accessory muscles and clear to auscultation bilaterally AUSCULTATION: clear to auscultation bilaterally Cardio: COMMON NORMALS: no JVD, regular rate, regular rhythm and No murmurs present (Cardio) RATE: regular rate RHYTHM: regular rhythm GI: COMMON NORMALS: Normal to inspection, nondistended, normoactive bowel sounds present and Soft to palpation PALPATION: Yes Soft to palpation Back/Pelvis: COMMON NORMALS: thoracic and lumbar spine normal to inspection Extremity: COMMON NORMALS: normal to inspection Neuro: COMMON NORMALS: patient oriented x3 Psych: ATTITUDE: Yes Withdrawn affect present and Yes Guarded attititude/behavior present ACTIVITY/MOTOR BEHAVIOR: Yes Avoids eye contact (attititude/behavior) Skin: COMMON NORMALS: no rashes or lesions noted GENERAL SKIN EXAM: no rashes or lesions noted Course ED course: Patient reports exertional chest pain. He was pain-free in the ER. He was very withdrawn and not forthcoming with history. He had a normal EKG and a negative initial troponin. When it came time for the second troponin to be drawn he became irate and insisted upon leaving. He expressed understanding that we had not fully evaluated his cardiac status and that we were concerned that he could have significant heart disease. He stated that he understood that he could go home and from this. He would not stay in the department for any further testing and left AGAINST MEDICAL ADVICE. Vital Signs: Vital signs: Vital Signs Temperature 97.8 F 10/22/19 12:20 Pulse Rate 83 10/22/19 12:20 Respiratory Rate 17 10/22/19 12:20 Blood Pressure 133/93 10/22/19 12:20 Pulse Oximetry 98 10/22/19 12:20 MDM - Chest Pain Lab Data: Labs: Lab Results 10/22/19 10/22/19 10/22/19 Range/Units 13:00 13:00 13:00 WBC 14.6 H (4.0-10.0) 10^3/ uL RBC 5.80 H (4.1-5.3) 10^6/u L Hgb 15.1 (11.7-16.6) g/dL Hct 48.7 (42.0-52.0) % MCV 84.0 (80-94) fL MCH 26.0 L (28.0-34.0) pg MCHC 31.0 (30.0-36.0) g/dL RDW 14.5 (12.1-15.1) % Plt Count 365 (130-400) 10^3/c mm MPV 8.7 (7.4-10.4) fL Neut % (Auto) 77.1 % Lymph % (Auto) 13.2 % [place] % (Auto) 6.9 % Eos % (Auto) 1.7 % Baso % (Auto) 0.7 % Neut # (Auto) 11.3 H (1.8-7.7) 10^3/u L Lymph # (Auto) 1.9 (0.8-4.8) 10^3/u L [place] # (Auto) 1.0 H (0.2-0.9) 10^3/u L Eos # (Auto) 0.3 (0.0-0.8) 10^3/u L Baso # (Auto) 0.1 (0.0-0.1) 10^3/u L Nucleated RBC % (a uto) 0 % Nucleated RBCs # 0.0 /100WBC PT 12.60 (10.5-13.3) SECO NDS INR 0.92 (0.8-1.2) Sodium 139 (136-145) mmol/L Potassium 4.3 (3.5-5.1) mmol/L Chloride 101 (98-107) mmol/L Carbon Dioxide 28 (22-29) mmol/L Anion Gap 14.3 (5-19) BUN 17 (6-20) mg/dL Creatinine 0.8 (0.7-1.2) mg/dL GFR Calculation 99.3 (90-130) mL/min Glucose 91 (65-115) mg/dL Calculated Osmolal ity 284 L (285-295) mOsm/k g Calcium 9.8 (8.5-10.5) mg/dL Total Bilirubin 0.2 (0.15-1.2) mg/dL AST 21 (0-40) U/L ALT 22 (0-41) U/L Alkaline Phosphata se 121 (40-130) IU/L Troponin T Baselin e (0-15) ng/mL Total Protein 7.0 (6.6-8.7) g/dL Albumin 4.1 (3.5-5.2) g/dL Globulin 2.9 (1.3-4.6) g/dL 10/22/19 Range/Units 13:00 WBC (4.0-10.0) 10^3/ uL RBC (4.1-5.3) 10^6/u L Hgb (11.7-16.6) g/dL Hct (42.0-52.0) % MCV (80-94) fL MCH (28.0-34.0) pg MCHC (30.0-36.0) g/dL RDW (12.1-15.1) % Plt Count (130-400) 10^3/c mm MPV (7.4-10.4) fL Neut % (Auto) % Lymph % (Auto) % [place] % (Auto) % Eos % (Auto) % Baso % (Auto) % Neut # (Auto) (1.8-7.7) 10^3/u L Lymph # (Auto) (0.8-4.8) 10^3/u L [place] # (Auto) (0.2-0.9) 10^3/u L Eos # (Auto) (0.0-0.8) 10^3/u L Baso # (Auto) (0.0-0.1) 10^3/u L Nucleated RBC % (a uto) % Nucleated RBCs # /100WBC PT (10.5-13.3) SECO NDS INR (0.8-1.2) Sodium (136-145) mmol/L Potassium (3.5-5.1) mmol/L Chloride (98-107) mmol/L Carbon Dioxide (22-29) mmol/L Anion Gap (5-19) BUN (6-20) mg/dL Creatinine (0.7-1.2) mg/dL GFR Calculation (90-130) mL/min Glucose (65-115) mg/dL Calculated Osmolal ity (285-295) mOsm/k g Calcium (8.5-10.5) mg/dL Total Bilirubin (0.15-1.2) mg/dL AST (0-40) U/L ALT (0-41) U/L Alkaline Phosphata se (40-130) IU/L Troponin T Baselin e 29 H (0-15) ng/mL Total Protein (6.6-8.7) g/dL Albumin (3.5-5.2) g/dL Globulin (1.3-4.6) g/dL EKG Data^: EKG 1: Interpretation: NSR 70 - normal axis, intervals. No ST changes. Normal EKG. 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
--- NOTE | 2019-10-22 12:29 | XR_ITS ---
WS: [id number] CHEST XRAY TECHNIQUE: Portable chest. CLINICAL INFORMATION: Chest pain COMPARISON: June 29, 2019 FINDINGS: Heart: Normal cardiac silhouette. Lungs: Lungs are clear. No consolidation or pleural effusion. Bones: Mild thoracic curve. XR/XR chest 1V portable [id number] IMPRESSION: No acute chest findings
--- NOTE | 2019-10-22 12:30 | ECG_ITS ---
Measurements Intervals [place] Rate: 70 P: 72 SC: 148 QRS: 56 QRSD: 97 T: 63 QT: 381 QTc: 411 SINUS RHYTHM WITH SINUS ARRHYTHMIA Possible old septal [place] Compared to ECG 06/26/2019 15:31:29 No significant changes Electronically Signed On 10-22-2019 20:50:14 CDT by Cecilia Lazo M.D. [email or web address]
[2019-10-22] MEDS: aspirin 81 mg Chew Tablet 324 MG PO (12:59)
[2019-10-22 13:06] LABS: Basophils # 0.1 10^3/uL (0.0-0.1); Basophils % 0.7 %; Eosinophils # 0.3 10^3/uL (0.0-0.8); Eosinophils % 1.7 %; Hematocrit 48.7 % (42.0-52.0); Hemoglobin 15.1 g/dL (11.7-16.6); Lymphocytes # 1.9 10^3/uL (0.8-4.8); Lymphocytes % 13.2 %; Mean Platelet Volume 8.7 fL (7.4-10.4); Monocytes % 6.9 %; Neutrophils # 11.3 10^3/uL (1.8-7.7); Neutrophils % 77.1 %; Nucleated Red Blood Cells % 0 %; Platelet Count 365 10^3/cmm (130-400); Red Cell Distribution Width 14.5 % (12.1-15.1); White Blood Count 14.6 10^3/uL (4.0-10.0)
[2019-10-22 13:20] LABS: INR 0.92 (0.8-1.2)
[2019-10-22 13:25] LABS: Alanine Aminotransferase 22 U/L (0-41); Albumin Level 4.1 g/dL (3.5-5.2); Alkaline Phosphatase 121 IU/L (40-130); Anion Gap 14.3 (5-19); Aspartate Amino Transferase 21 U/L (0-40); Blood Urea Nitrogen 17 mg/dL (6-20); Calcium 9.8 mg/dL (8.5-10.5); Carbon Dioxide 28 mmol/L (22-29); Chloride 101 mmol/L (98-107); Globulin 2.9 g/dL (1.3-4.6); Glomerular Filtration Rate 99.3 mL/min (90-130); Glucose 91 mg/dL (65-115); Osmolality Calculated 284 mOsm/kg (285-295); Potassium 4.3 mmol/L (3.5-5.1); Sodium 139 mmol/L (136-145); Total Bilirubin 0.2 mg/dL (0.15-1.2)
[2019-10-22 13:28] LABS: Troponin(5th) Baseline 29 ng/mL (0-15)
--- NOTE | 2019-10-22 14:30 | ECG_ITS ---
Measurements Intervals [place] Rate: 71 P: 77 TX: 143 QRS: 70 QRSD: 100 T: 66 QT: 380 QTc: 414 SINUS RHYTHM WITH SINUS ARRHYTHMIA Possible SEPTAL MYOCARDIAL INFARCTION , OF INDETERMINATE AGE [40+ ms Q WAVE IN V1/V2] Compared to ECG 06/26/2019 15:31:29 Myocardial infarct finding now present Electronically Signed On 10-22-2019 20:55:56 CDT by Cecilia Lazo M.D. [email or web address]
--- NOTE | 2019-10-22 15:00 | PC.NURSE ---
patient began removing iv informed that he was due for second troponin patient stated that he was tired of waiting tried to tell him that troponins were 2 hours apart but he didnt want to wait. Dr Perez came into room and made him repeat the risks if he left and he said yes that he could have a heart attack and stomped out. Had called girlfriend earlier to update her and will call now
== END 2019-10-22 15:34 | disposition left against medical advice (07) ==
PROVIDERS: Emergency Provider Emergency Medicine; PCP Nurse Practitioner
DX: R07.9 Chest pain, unspecified (principal); Z53.21 Procedure and treatment not carried out due to patient leaving prior to being seen by health care provider; N18.2 Chronic kidney disease, stage 2 (mild); F17.210 Nicotine dependence, cigarettes, uncomplicated
CPT/HCPCS: 12345; 36415; 71045; 80053; 84484; 85025; 85610; 93005; 99281; 99284

== ENCOUNTER 2020-05-08 10:12 | Emergency (ER) | payer MEDICARE, SELFPAY ==
[2020-05-08 10:20] VITALS: BP 154/101; PULSE 89; RESP 18; TEMP 36.6; O2SAT 99; BMI 22.4
--- NOTE | 2020-05-08 10:33 | XR_ITS ---
WS: [id number] Portable AP upright chest, 05/08/2020 Clinical Data: dyspnea/cough Comparison: Portable chest, 10/22/2019. Findings: No nodules, masses or effusions are seen. The heart is normal. The pulmonary vascularity is not increased. No pneumonia or pneumothorax is seen. The diaphragms are flattened. There is absence of the distal portion of the right clavicle. XR/XR chest 1V portable [id number] Impression: Hyperinflation.
[2020-05-08 11:10] VITALS: BP 151/100; PULSE 82; RESP 15; O2SAT 98
--- NOTE | 2020-05-08 11:20 | CT_ITS ---
WS: [id number] CT ABDOMEN PELVIS TECHNIQUE: Contrast-enhanced CT of the abdomen and pelvis with coronal and sagittal reformatted image s. CLINICAL INFORMATION: abd pain COMPARISON: June 28, 2019 DLP: 612.[address] scans at [facility] use at least one of these dose optimization techniques: automat ed exposure control; mA and/or kV adjustment per patient size (includes targeted exams where dose is matched to clinical indication); or iterative reconstruction. FINDINGS: Images degraded in pelvis due to left VIOLET. Fat-containing right inguinal hernia. No herniated bowel. This is similar in appearance to the prior noncontrast examination. Tiny fat-containing umbilical her alo. Diffuse fatty infiltration of the liver. Portal vein and splenic vein are patent. Gallbladder is contracted. Lung bases are well aerated. Splenic granulomas. Normal GE junction. Normal caliber abdo jono aorta. Aortic calcification. Wedge-shaped area decreased enhancement involving the lower pole right kidney likely represents chron ic cortical infarct. Contrast was not previously administered. Mild cortical scarring upper pole left kidney. No hydronephrosis in either kidney. Recommend correlation for UTI. Retroaortic left renal ve in. No periaortic or retroperitoneal lymphadenopathy. Sigmoid diverticulosis. No evidence of acute diverticulitis. No evidence of small or large bowel obst ruction. CT/CT abdomen pelvis w con* [id number] IMPRESSION: 1. Fat-containing right inguinal hernia. No herniated bowel. 2. Diffuse fatty infiltration of the liver. 3. Wedge-shaped area of decreased enhancement lower pole right kidney likely r epresents chronic cortical infarct. Chronic cortical scarring upper pole left k idney. Recommend correlation with urinary tract symptoms. 4. No hydronephrosis in either kidney. 5. Diverticulosis. No evidence of acute diverticulitis. 6. Left VIOLET. Attempted notification Hari Pérez DO at 05/08/2020 12:32 PM.
--- NOTE | 2020-05-08 11:24 | ED_ITS ---
HPI - Abdominal Pain General: Chief Complaint: Abdominal Pain Stated Complaint: R LOWER ABDOMEN PAIN Time Seen by Provider: 05/08/20 10:29 History of Present Illness: HPI narrative: 51-year-old male presents emergency room claiming of right abdominal pain and small center inguinal area he reports noticing a large bulge at times when he coughs or sneezes. He has not had any vomiting or diarrhea he has been having regular bowel movements including one earlier this morning although somewhat small he said he denies any fever sweats or chills no dysuria urgency or frequency he denies any chest pain denies dysuria urgency frequency or hematuria no hematochezia melena hematemesis or coffee-ground emesis. He denies previous abdominal surgeries. MD elicited complaint: abdominal pain Onset (ago): day(s) Pain Consistency: constant Location: Groin (Right) Severity: moderate Quality: cramping Radiation: none Migration to: no migration Exacerbating factors: bowel movement and other (cough) Relieving factors: nothing Associated Symptoms: Reports GI cramping and loose stools; Denies anorexia, belching, bloating, change in bowel habits, change in stool character, chills, coffee ground emesis, constipation, diarrhea, dyspepsia, dysuria, excessive flatus, fever(s), heartburn, hematochezia, hematuria, hematemesis, fecal incontinence, melena, nausea, poor appetite, syncope and vomiting Review of Systems Const: Denies: fever(s) or chills ENMT: Denies: throat pain, ear or mastoid pain, nasal discharge or nasal congestion Card: Denies: syncope Resp: Denies: dyspnea, productive cough or non-productive cough GI: Reports: GI cramping; Denies: nausea, vomiting, hematemesis, coffee ground emesis, heartburn, diarrhea, constipation, bloating, belching, excessive flatus, fecal incontinence, change in bowel habits, change in stool character, hematochezia or melena : Denies: dysuria or hematuria Skin/Breast: Denies: rash or pruritus PFSH ED PFSH: Medical History (Updated 05/08/20 @ 13:08 by Hari Pérez DO) CKD (chronic kidney disease), stage II Contact with and (suspected) exposure to environmental tobacco smoke (acute) ([facility]) Diverticulitis Hx of anemia of chronic renal failure Hx of fracture of hip Surgical History History of left hip replacement Hx of hand surgery Left Family History Other Cancer Social History Smoking and tobacco status: current every day smoker cigarettes Alcohol intake: never Household members: family Physical Exam Const: COMMON NORMALS: no acute distress GENERAL APPEARANCE: cooperative and comfortable ORIENTATION/CONSCIOUSNESS: Yes awake, Yes oriented to person, Yes oriented to place and Yes oriented to time HENMT: COMMON NORMALS: normocephalic, atraumatic and hearing grossly normal bilaterally HEAD & SCALP: normocephalic and atraumatic Neck/C-Spine: COMMON NORMALS: no JVD Resp: COMMON NORMALS: normal respiratory effort, No retractions, No use of accessory muscles and clear to auscultation bilaterally AUSCULTATION: clear to auscultation bilaterally Cardio: COMMON NORMALS: no JVD, regular rate, regular rhythm and No murmurs present (Cardio) RATE: regular rate RHYTHM: regular rhythm GI: COMMON NORMALS: Soft to palpation and No hepatosplenomegaly present AUSCULTATION: Yes normoactive bowel sounds PALPATION: Yes Soft to palpation, No Tenderness to palpation present (GI), No Guarding due to palpation present (GI) and Yes No hepatosplenomegaly present OTHER: Palpation the right inguinal canal no appreciate any obvious hernia with Valsalva maneuver and was coughing there is no direct or indirect inguinal hernia noted. Patient has little to no subcutaneous fat is cord is easily palpable within the inguinal canal but no obvious hernia. Extremity: COMMON NORMALS: normal to inspection, capillary refill normal, no clubbing, cyanosis or edema, no calf tenderness and no pedal edema Neuro: SENSORIUM/ORIENTATION: Yes oriented to person, Yes oriented to place and Yes oriented to time Skin: COMMON NORMALS: no rashes or lesions noted GENERAL SKIN EXAM: no rashes or lesions noted Course Vital Signs: Vital signs: Vital Signs Temperature 97.9 F 05/08/20 10:20 Pulse Rate 65 05/08/20 13:20 Respiratory Rate 15 05/08/20 13:20 Blood Pressure 151/100 05/08/20 11:10 Pulse Oximetry 98 05/08/20 13:20 MDM - Abdominal Pain MDM Narrative: Medical decision making narrative: Small unchanged right inguinal hernia with small amount of fat in it but no bowel. There is also a small fat-containing umbilical hernia. These are unchanged from previous CT on June 28, 2019. Reviewed findings with the patient. We will go and refer to general surgery as symptoms have resolved at this time recommend no lifting greater than 10 pounds return if has worsening pain Lab Data: Labs: Lab Results 05/08/20 05/08/20 05/08/20 Range/Units 11:20 11:20 11:20 WBC 8.4 (4.0-10.0) 10^3/ uL RBC 6.05 H (4.1-5.3) 10^6/u L Hgb 16.6 (11.7-16.6) g/dL Hct 50.9 (42.0-52.0) % MCV 84.1 (80-94) fL MCH 27.4 L (28.0-34.0) pg MCHC 32.6 (30.0-36.0) g/dL RDW 13.1 (12.1-15.1) % Plt Count 343 (130-400) 10^3/c mm MPV 8.7 (7.4-10.4) fL Neut % (Auto) 66.1 % Lymph % (Auto) 23.8 % [place] % (Auto) 6.0 % Eos % (Auto) 2.5 % Baso % (Auto) 1.2 % Neut # (Auto) 5.58 (1.8-7.7) 10^3/u L Lymph # (Auto) 2.0 (0.8-4.8) 10^3/u L [place] # (Auto) 0.5 (0.2-0.9) 10^3/u L Eos # (Auto) 0.2 (0.0-0.8) 10^3/u L Baso # (Auto) 0.1 (0.0-0.1) 10^3/u L Nucleated RBC % (a uto) 0 % Nucleated RBCs # 0.0 /100WBC Sodium 138 (136-145) mmol/L Potassium 4.1 (3.5-5.1) mmol/L Chloride 102 (98-107) mmol/L Carbon Dioxide 28 (22-29) mmol/L Anion Gap 12.1 (5-19) BUN 10 (6-20) mg/dL Creatinine 0.8 (0.7-1.2) mg/dL GFR Calculation 99.3 (90-130) mL/min Glucose 143 H (65-115) mg/dL Calculated Osmolal ity 288 (285-295) mOsm/k g Lactic Acid 1.7 (0.5-2.2) mmol/L Calcium 9.6 (8.5-10.5) mg/dL Total Bilirubin 0.3 (0.15-1.2) mg/dL AST 19 (0-40) U/L ALT 20 (0-41) U/L Alkaline Phosphata se 81 (40-130) IU/L Total Protein 6.8 (6.6-8.7) g/dL Albumin 4.2 (3.5-5.2) g/dL Globulin 2.6 (1.3-4.6) g/dL Urine Color (Yellow) Urine Appearance (CLEAR) Urine pH (5-7) Ur Specific Gravit y (1.005-1.030) Urine Protein (Negative) Urine Glucose (UA) (Normal) Urine Ketones (Negative) Urine Blood (Negative) Urine Nitrate (Negative) Urine Bilirubin (Negative) Urine Urobilinogen (Negative) mg/dL Ur Leukocyte Morenita ase (Negative) 05/08/20 Range/Units 11:42 WBC (4.0-10.0) 10^3/ uL RBC (4.1-5.3) 10^6/u L Hgb (11.7-16.6) g/dL Hct (42.0-52.0) % MCV (80-94) fL MCH (28.0-34.0) pg MCHC (30.0-36.0) g/dL RDW (12.1-15.1) % Plt Count (130-400) 10^3/c mm MPV (7.4-10.4) fL Neut % (Auto) % Lymph % (Auto) % [place] % (Auto) % Eos % (Auto) % Baso % (Auto) % Neut # (Auto) (1.8-7.7) 10^3/u L Lymph # (Auto) (0.8-4.8) 10^3/u L [place] # (Auto) (0.2-0.9) 10^3/u L Eos # (Auto) (0.0-0.8) 10^3/u L Baso # (Auto) (0.0-0.1) 10^3/u L Nucleated RBC % (a uto) % Nucleated RBCs # /100WBC Sodium (136-145) mmol/L Potassium (3.5-5.1) mmol/L Chloride (98-107) mmol/L Carbon Dioxide (22-29) mmol/L Anion Gap (5-19) BUN (6-20) mg/dL Creatinine (0.7-1.2) mg/dL GFR Calculation (90-130) mL/min Glucose (65-115) mg/dL Calculated Osmolal ity (285-295) mOsm/k g Lactic Acid (0.5-2.2) mmol/L Calcium (8.5-10.5) mg/dL Total Bilirubin (0.15-1.2) mg/dL AST (0-40) U/L ALT (0-41) U/L Alkaline Phosphata se (40-130) IU/L Total Protein (6.6-8.7) g/dL Albumin (3.5-5.2) g/dL Globulin (1.3-4.6) g/dL Urine Color Yellow (Yellow) Urine Appearance Clear (CLEAR) Urine pH 6.5 (5-7) Ur Specific Gravit y 1.015 (1.005-1.030) Urine Protein Neg (Negative) Urine Glucose (UA) Norm (Normal) Urine Ketones Negative (Negative) Urine Blood Neg (Negative) Urine Nitrate Negative (Negative) Urine Bilirubin Neg (Negative) Urine Urobilinogen Norm (Negative) mg/dL Ur Leukocyte Morenita ase Negative (Negative) Discharge Plan Discharge Patient Disposition: Home Clinical Impression: Inguinal hernia of right side without obstruction or gangrene Condition: Stable Prescriptions: No Action No Known Home Medications RF: 0 Discharge Orders: Discharge ED (Routine); Ordered 05/08/20 Ordered By: Hari Pérez Referrals: Trupti Olivia FNP [Primary Care Provider] - Activity Restrictions/Additional Instructions: Case management will call with a referral to general surgery for inguinal hernia Coding Level of Care Code ED Roof Promen[employer] Tile Setter for Chg Fwd Exam Comprehensive
[2020-05-08] MEDS: sodium chloride 0.9% 1,000 ML 999 ML IV (11:26)
[2020-05-08 11:27] LABS: Basophils # 0.1 10^3/uL (0.0-0.1); Basophils % 1.2 %; Eosinophils # 0.2 10^3/uL (0.0-0.8); Eosinophils % 2.5 %; Hematocrit 50.9 % (42.0-52.0); Hemoglobin 16.6 g/dL (11.7-16.6); Lymphocytes % 23.8 %; Mean Corpuscular HGB Conc 32.6 g/dL (30.0-36.0); Mean Corpuscular Hemoglobin 27.4 pg (28.0-34.0); Mean Corpuscular Volume 84.1 fL (80-94); Mean Platelet Volume 8.7 fL (7.4-10.4); Monocytes # 0.5 10^3/uL (0.2-0.9); Neutrophils # 5.58 10^3/uL (1.8-7.7); Neutrophils % 66.1 %; Nucleated Red Blood Cells % 0 %; Platelet Count 343 10^3/cmm (130-400); Red Blood Count 6.05 10^6/uL (4.1-5.3); Red Cell Distribution Width 13.1 % (12.1-15.1); White Blood Count 8.4 10^3/uL (4.0-10.0)
[2020-05-08 11:43] LABS: Alanine Aminotransferase 20 U/L (0-41); Albumin Level 4.2 g/dL (3.5-5.2); Alkaline Phosphatase 81 IU/L (40-130); Anion Gap 12.1 (5-19); Aspartate Amino Transferase 19 U/L (0-40); Blood Urea Nitrogen 10 mg/dL (6-20); Calcium 9.6 mg/dL (8.5-10.5); Carbon Dioxide 28 mmol/L (22-29); Chloride 102 mmol/L (98-107); Globulin 2.6 g/dL (1.3-4.6); Glomerular Filtration Rate 99.3 mL/min (90-130); Glucose 143 mg/dL (65-115); Osmolality Calculated 288 mOsm/kg (285-295); Potassium 4.1 mmol/L (3.5-5.1); Sodium 138 mmol/L (136-145); Total Bilirubin 0.3 mg/dL (0.15-1.2); Total Protein 6.8 g/dL (6.6-8.7)
[2020-05-08 11:44] LABS: Lactic Sepsis W/Reflex 1.7 mmol/L (0.5-2.2)
--- NOTE | 2020-05-08 12:01 | PC.NURSE ---
pt to CT
[2020-05-08] MEDS: iohexol 300 mg/mL 100 mL Btl IV (12:10)
[2020-05-08] MEDS: ketorolac 30 mg/mL INJ IVP (12:15)
[2020-05-08] MEDS: lidocaine 2% viscous 15 ML, aluminum-mag hydrox-simethicon 30 ML, sucralfate oral liq 1 GM PO (12:16)
--- NOTE | 2020-05-08 12:21 | PC.NURSE ---
pt refuses remainder of IV fluids
[2020-05-08 12:44] LABS: Add Urine Microscopic? NO
[2020-05-08 12:51] LABS: Bilirubin Urine Neg (Negative); Blood Urine Neg (Negative); Glucose Urine UA Norm (Normal); Ketones Urine Negative (Negative); Leukocyte Esterase Urine Negative (Negative); Nitrate Urine Negative (Negative); Protein Urine Neg (Negative); Specific Gravity, Urine 1.015 (1.005-1.030); Urine Appearance Clear (CLEAR); Urine Color Yellow (Yellow); Urobilinogen Urine Norm (Negative); pH Urine 6.5 (5-7)
[2020-05-08 13:20] VITALS: PULSE 65; RESP 15; O2SAT 98
== END 2020-05-08 13:22 | disposition home or self-care (01) ==
PROVIDERS: Emergency Provider Family Medicine; PCP Nurse Practitioner
DX: K40.90 Unilateral inguinal hernia, without obstruction or gangrene, not specified as recurrent (principal); N18.2 Chronic kidney disease, stage 2 (mild); F17.210 Nicotine dependence, cigarettes, uncomplicated
CPT/HCPCS: 12345; 71045; 74177; 80053; 81003; 83605; 85025; 96361; 96374; 99283; J1885; J7030; Q9967

== ENCOUNTER → 2022-03-10 16:38 | Outpatient (BNVA) | payer OTHER, SELFPAY | PROVIDERS: PCP Nurse Practitioner; Visit Provider Family Medicine | DX: I10 Essential (primary) hypertension (principal); K40.90 Unilateral inguinal hernia, without obstruction or gangrene, not specified as recurrent; H61.91 Disorder of right external ear, unspecified | CPT/HCPCS: 80053; 80061; 85025 ==

== ENCOUNTER → 2022-08-10 14:32 | Outpatient (BNVA) | payer MEDICARE, SELFPAY | PROVIDERS: PCP Family Medicine; Referring Provider Family Medicine; Visit Provider Surgery | DX: K40.90 Unilateral inguinal hernia, without obstruction or gangrene, not specified as recurrent (principal) | CPT/HCPCS: 99203 ==

== ENCOUNTER 2022-09-08 06:57 | Day surgery (SDC) | payer MEDICARE, SELFPAY ==
[2022-09-07 12:07] VITALS: BMI 22.1
[2022-09-08] VITALS (11 sets, daily range): BP systolic 102–152; BP diastolic 65–98; PULSE 57–69; RESP 12–16; TEMP 36.4–36.7; O2SAT 92–99
[2022-09-08] MEDS: sodium chloride 0.9% 1,000 ML 30 ML IV (07:40)
--- NOTE | 2022-09-08 07:41 | ANES.PREANE2 ---
Pre-Anesthetic Assessment Height/Weight: Height 1.83 m Weight 73.936 kg Temp Pulse Resp BP Pulse Ox O2 Del Method 97.5 F L 69 16 152/98 97 09/08/22 07:25 09/08/22 07:25 09/08/22 07:25 09/08/22 07:25 09/08/22 07:25 09/08/22 07:25 Preop Diagnosis: right inguinal hernia Operation Date: 09/08/22 08:25 Proposed Procedures p lap right inguinal hernia repair with mesh 17710, K40.90(Right) - Wood Thapa DO Familial anesthetic complications: None Was Beta Angélica taken within 24 hours: N/A Was Clonidine taken within 24 hours: N/A Last intake: Intake Last Liquid Date 09/07/22 Last Liquid Time 21:30 Last Solid Date 09/07/22 Last Solid Time 20:30 Social Tobacco and No alcohol Exam alert, oriented x 3, clear to auscultation bilaterally and regular rate & rhythm Airway Mallampati: Class III Dentition: other (missing teeth, poor dentition) CV/HEM Hypertension Chronic Renal Insufficiency Hepatic fatty liver Anesthetic Plan ASA status: 3 Anesthesia: General Risk of > 500 ml blood loss (7ml/kg in children): No Medications/Allergies Home Medications Medication Instructions Recorded Confirmed Last Taken Type losartan 50 mg tablet 50 mg PO DAILY #30 tabs 08/29/22 09/07/22 09/07/22 Rx Allergies Allergy/AdvReac Type Severity Reaction Status Date / Time No Known Allergies Allergy Verified 09/08/22 07:22 [facility] Anesthesia Medical History Anxiety and depression CKD (chronic kidney disease), stage II Contact with and (suspected) exposure to environmental tobacco smoke (acute) (chronic) Diverticulitis History of nonmelanoma skin cancer Hx of anemia of chronic renal failure Hx of fracture of hip Surgical History History of left hip replacement Hx of hand surgery Left Family History Father Cancer unknown Denies family history of Diabetes CAD (coronary artery disease) Clotting disorder Dementia Hyperlipidemia Psychiatric illness Chronic kidney disease (CKD) Anesthesia complication Bleeding disorder Lung disease Hypertension Stroke Social History Smoking and tobacco status: current every day smoker cigarettes Packs smoked per day: 1 Alcohol intake: never Lives independently: Yes Household members: family Marital status: Single Number of children: 3 Current occupational status: unemployed and disabled Current gender identity: Male Special manolo needs: No Agree to transfusion: Yes Data Anesthesia Cardiac Studies: No Data to Display
--- NOTE | 2022-09-08 07:48 | W.PM.OPSUD ---
Surgery/Procedure H&P Update DATE OF PROCEDURE: September 08, 2022 DATE H&P PERFORMED: 08/10/22 H&P UPDATE INFORMATION: I have reviewed H&P completed within last 30 days, I have examined patient prior to procedure and No changes to prior documentation PREOP DIAGNOSIS: right inguinal hernia PLANNED PROCEDURE: Operation Date: 09/08/22 08:25 Proposed Procedures p lap right inguinal hernia repair with mesh 22726, K40.90(Right) - Wood Thapa DO
[2022-09-08] MEDS: albuterol 2.5 mg/3 mL Neb (07:52)
[2022-09-08 08:03] LABS: Blood Urea Nitrogen 12 mg/dL (8-23); Calcium 8.4 mg/dL (8.5-10.5); Carbon Dioxide 24 mmol/L (22-29); Chloride 107 mmol/L (98-107); Glomerular Filtration Rate 98.3 mL/min (90-130); Glucose 99 mg/dL (65-115); Osmolality Calculated 288 mOsm/kg (285-295); Sodium 139 mmol/L (136-145)
[2022-09-08] MEDS: ceFAZolin 2,000 MG in sodium chloride 0.9% (plus) 50 ML 100 MG IV (08:18)
[2022-09-08] MEDS: lidocaine-epi 2% 20 mL INJ INJECTION (08:42)
--- NOTE | 2022-09-08 09:32 | P.OP_ITS ---
Operative Report Date of procedure: September 08, 2022 Pre-op diagnosis: Preop Diagnosis right inguinal hernia Post-op diagnosis: other (Indirect right inguinal hernia) Procedure done: Laparoscopic repair (TEPP) of indirect right inguinal hernia Implants: Extra-large right 3D max Bard mesh Specimens removed/disposition: None Surgeon: Dr. Wood Thapa DO Anesthesia: General Estimated blood loss (mL): 5 Complications: None apparent Brief History: This is a very pleasant 62-year-old gentleman who came to see me with a years long history of right groin bulge. Laparoscopic repair of right inguinal hernia was indicated. The risk and benefits were explained and documented. Procedure: Patient was wheeled into the operative room and placed on the OR table in a supine position. Abdomen was inspected prepped and draped in usual sterile fashion. Time-out was performed and all present were in agreement. A 15 blade scalpel was used to make 1.2 centimeter incision infraumbilically. Combination of sharp and blunt dissection was performed down to the anterior rectus sheath which was opened sharply. The dissecting balloon was then inserted into the space of Retzius and blown up. We put the camera into the port and identified that we were in the correct space. I then placed 2 5 millimeter trocars suprapubically in the midline. I then used endokitners to bluntly dissect in the space of Retzius out laterally. An indirect inguinal hernia was identified on the right. Blunt dissection was performed to dissect down the hernia sac u ntil the vas deferens dove medially. An extra-large right inguinal mesh was then placed into the space of Retzius. The mesh was unrolled and tacked once medially at the pubic bone. The mesh laid out nicely over the spermatic cord. I watched the hernia sac remained in place as insufflation was removed. Incisions were closed with 4-0 Monocryl in a subcuticular interrupted fashion. Skin glue was applied. Patient tolerated the procedure well.
--- NOTE | 2022-09-08 13:37 | ANE.PACU2 ---
Inpatient post-anesthesia follow up: Airway intact: Yes Vital signs: Temperature 98.0 F Pulse Rate 59 Respiratory Rate 16 Blood Pressure 114/72 Pulse Oximetry 96 Oxygen Delivery Me thod Room Air Oxygen Flow Rate Fraction of Inspir ed Oxygen Hydration adequate: Yes Nausea and vomiting: No Pain level: 1 Mental status: Baseline
== END 2022-09-08 11:55 | disposition home or self-care (01) ==
PROVIDERS: Anesthesiology; PCP Family Medicine; Visit Provider Surgery
PROC: (CPT 49650; principal; 2022-09-08 08:15)
DX: K40.90 Unilateral inguinal hernia, without obstruction or gangrene, not specified as recurrent (principal); I12.9 Hypertensive chronic kidney disease with stage 1 through stage 4 chronic kidney disease, or unspecified chronic kidney disease; F17.210 Nicotine dependence, cigarettes, uncomplicated; N18.2 Chronic kidney disease, stage 2 (mild); K76.0 Fatty (change of) liver, not elsewhere classified
CPT/HCPCS: 49650; 36415; 51702; 80048; C1781; J0330; J0690; J1100; J2405; J2704; J3010; J3490; J7030; J7613

== ENCOUNTER → 2022-09-20 13:23 | Outpatient (BNVA) | payer MEDICARE, SELFPAY | PROVIDERS: PCP Family Medicine; Visit Provider Surgery | DX: Z98.890 Other specified postprocedural states (principal); Z87.19 Personal history of other diseases of the digestive system | CPT/HCPCS: 99024 ==

== ENCOUNTER 2022-09-29 10:56 | Emergency (ER) | payer MEDICARE, SELFPAY ==
[2022-09-29 11:03] VITALS: BP 156/81; PULSE 67; RESP 16; TEMP 36.3; O2SAT 98; BMI 22.1
--- NOTE | 2022-09-29 11:07 | ECG_ITS ---
[facility] Test Date: 2022-09-29 Pat Name: Jhony Terrell Department: Room: Gender: Male Faculty Dean: : 1960 Requested By: Hari Salcedo Order Number: [id number] MD: Oumar Grimaldo M.D. Measurements Intervals Serena Rate: 71 P: 145 DE: 149 QRS: 122 QRSD: 100 T: 140 QT: 369 QTc: 404 Interpretive Statements SINUS RHYTHM ARM LEADS REVERSED [INVERTED P AND QRS IN I] Compared to ECG 10/22/2019 14:27:21 Sinus arrhythmia no longer present Myocardial infarct finding no longer present Electronically Signed On 09-29-2022 16:14:49 CDT by Oumar Grimaldo M.D. [id number]
--- NOTE | 2022-09-29 13:06 | W.ED.DIZZY ---
HPI - Dizziness General: Chief Complaint: Dizziness Stated Complaint: dizzy, shaking sent by PCP Time Seen by Provider: 09/29/22 12:29 Source: patient and family Mode of arrival: ambulatory Limitations: no limitations History of Present Illness: HPI Narrative: Patient is a 62-year-old male who presents to ED today along with his sister for an episode of dizziness/lightheadedness, tremor, feeling tingly, and sense of impending doom that began roughly around 8 AM this morning. Patient states he had awoke and had drink his morning coffee. He states shortly after he did smoke some marijuana that he had received from a friend. He states shortly after that he began feeling symptomatic. He states symptoms lasted from approximately 8am to roughly 10am when he was seen by his primary care provider. Patient was instructed to come to the emergency department for further evaluation. There was some possible concern that maybe the marijuana had been laced with additional illicit substances. During my examination patient tells me that all of his symptoms have subsided however he does feel a little anxious. Sister states she did smoke some of the marijuana and stated it was very potent. MD elicited complaint: dizziness and lightheadedness Onset (ago): hour(s) Severity: moderate Context: other (marijuana use) History of similar symptoms: No Relieving factors: nothing Associated symptoms: Reports no associated symptoms; Denies chest pain, chills, headache(s), malaise, nausea, palpitations, syncope or vomiting Associated neuro symptoms: Reports no associated symptoms; Deny numbness in extremities Stroke scale total: 0 Review of Systems Const: Denies: fever(s), chills, body aches, fatigue or malaise Eyes: Denies: change in vision, blurry vision, floaters or seeing flashes Card: Reports: lightheadedness (resolved); Denies: chest pain, palpitations, irregular heart rhythm, edema, swelling of feet/ankles, syncope, pre-syncope, dyspnea on exertion or orthopnea Resp: Denies: dyspnea, productive cough, stridor or chest congestion GI: Denies: abdominal pain, nausea or vomiting : Denies: flank pain or hematuria Musc: Denies: neck pain, back pain, extremity pain or joint pain Skin/Breast: Denies: rash Neuro: Reports: sensory changes (tingling/paresthesias have resolved) and dizziness (resolved); Denies: headache(s), numbness in extremities, weakness in extremities, Slurred speech present or difficulty communicating thoughts Psych: Reports: anxiety PFSH ED PFSH: Medical History Anxiety and depression CKD (chronic kidney disease), stage II Contact with and (suspected) exposure to environmental tobacco smoke (acute) (chronic) Diverticulitis History of nonmelanoma skin cancer Hx of anemia of chronic renal failure Hx of fracture of hip Surgical History History of left hip replacement History of right inguinal hernia repair Hx of hand surgery Left Family History Father Cancer unknown Denies family history of Diabetes CAD (coronary artery disease) Clotting disorder Dementia Hyperlipidemia Psychiatric illness Chronic kidney disease (CKD) Anesthesia complication Bleeding disorder Lung disease Hypertension Stroke Social History Smoking and tobacco status: current every day smoker cigarettes Packs smoked per day: 1 Alcohol intake: never Substance/Drug Use: current Substance/Drug use frequency: daily Other substance/drug use details: THC Lives independently: Yes Household members: family Marital status: Single Number of children: 3 Current occupational status: unemployed and disabled Current gender identity: Male Special manolo needs: No Agree to transfusion: Yes Physical Exam Const: COMMON NORMALS: no acute distress, average body habitus, patient oriented x3, no limitations, alert and well nourished GENERAL APPEARANCE: cooperative and anxious (states he wants to go home) ORIENTATION/CONSCIOUSNESS: Yes awake, Yes oriented to person, Yes oriented to place and Yes oriented to time HENMT: COMMON NORMALS: normocephalic and atraumatic HEAD & SCALP: normal to inspection, normocephalic and atraumatic Eye: GENERAL EYE: appearance normal, both eyes and all related structures Neck/C-Spine: COMMON NORMALS: full ROM, no lymphadenopathy and no meningeal signs Resp: COMMON NORMALS: normal respiratory effort and clear to auscultation bilaterally AUSCULTATION: clear to auscultation bilaterally Cardio: COMMON NORMALS: regular rate and regular rhythm RATE: regular rate RHYTHM: regular rhythm Extremity: COMMON NORMALS: normal to inspection GENERAL: Yes normal exam except as noted Neuro: SON COMA SCALE: document GCS findings Son coma scale eye opening: Spontaneous [place] coma scale verbal response: Orientated [place] coma scale motor response: Obey commands Son coma scale total score: 15 COMMON NORMALS: patient oriented x3, CN's II-XII intact bilaterally, moves all extremities, no focal motor deficits, no sensory deficits noted and gait normal SENSORIUM/ORIENTATION: Yes alert, Yes oriented to person, Yes oriented to place and Yes oriented to time MENINGEAL SIGNS: Yes no meningeal signs SPEECH: speech normal GAIT: Yes Normal gait present OTHER: no tremor noted Skin: COMMON NORMALS: no rashes or lesions noted GENERAL SKIN EXAM: no rashes or lesions noted Course Vital Signs: Vital signs: Vital Signs Temperature 97.3 F L 09/29/22 11:03 Pulse Rate 67 09/29/22 11:03 Respiratory Rate 16 09/29/22 11:03 Blood Pressure 156/81 09/29/22 11:03 Pulse Oximetry 98 09/29/22 11:03 Oxygen Delivery Me thod Room Air 09/29/22 11:03 MDM - Dizziness Medical Decision Making Upon arrival to the ED and during my initial examination patient tells me he is asymptomatic. He has been asymptomatic throughout his ED stay. Vital signs are stable. Blood work including troponin is unremarkable. EKG showing sinus rhythm without ST abnormalities. UDS is negative other than being positive for marijuana. Patient would like to go home. Lab Data 09/29/22 13:08 09/29/22 13:08 Laboratory Results WBC 11.8 10^3/uL (4.0-10.0) H 09/29/22 13:08 RBC 4.98 10^6/uL (4.1-5.3) 09/29/22 13:08 Hgb 13.9 g/dL (11.7-16.6) 09/29/22 13:08 Hct 43.1 % (42.0-52.0) 09/29/22 13:08 MCV 86.5 fl (80-94) 09/29/22 13:08 MCH 27.9 pg (28.0-34.0) L 09/29/22 13:08 MCHC 32.3 g/dL (30.0-36.0) 09/29/22 13:08 RDW 13.4 % (12.1-15.1) 09/29/22 13:08 Plt Count 384 10^3/cmm (130-400) 09/29/22 13:08 MPV 8.6 fL (7.4-10.4) 09/29/22 13:08 Neut % (Auto) 81.2 % 09/29/22 13:08 Lymph % (Auto) 11.4 % 09/29/22 13:08 [place] % (Auto) 5.7 % 09/29/22 13:08 Eos % (Auto) 0.8 % 09/29/22 13:08 Baso % (Auto) 0.6 % 09/29/22 13:08 Neut # (Auto) 9.61 10^3/uL (1.8-7.7) H 09/29/22 13:08 Lymph # (Auto) 1.4 10^3/uL (0.8-4.8) 09/29/22 13:08 [place] # (Auto) 0.7 10^3/uL (0.2-0.9) 09/29/22 13:08 Eos # (Auto) 0.1 10^3/uL (0.0-0.8) 09/29/22 13:08 Baso # (Auto) 0.1 10^3/uL (0.0-0.1) 09/29/22 13:08 Nucleated RBC % (auto) 0 % 09/29/22 13:08 Nucleated RBCs # 0.0 /100WBC 09/29/22 13:08 Sodium 138 mmol/L (136-145) 09/29/22 13:08 Potassium 4.2 mmol/L (3.5-5.1) 09/29/22 13:08 Chloride 102 mmol/L (98-107) 09/29/22 13:08 Carbon Dioxide 27 mmol/L (22-29) 09/29/22 13:08 Anion Gap 13.2 (5-19) 09/29/22 13:08 BUN 13 mg/dL (8-23) 09/29/22 13:08 Creatinine 0.7 mg/dL (0.7-1.2) 09/29/22 13:08 GFR Calculation 114.6 mL/min (90-130) 09/29/22 13:08 Glucose 101 mg/dL (65-115) 09/29/22 13:08 Calculated Osmolality 286 mOsm/kg (285-295) 09/29/22 13:08 Calcium 8.9 mg/dL (8.5-10.5) 09/29/22 13:08 Total Bilirubin 0.2 mg/dL (0.15-1.2) 09/29/22 13:08 AST 19 U/L (0-40) 09/29/22 13:08 ALT 16 U/L (0-41) 09/29/22 13:08 Alkaline Phosphatase 71 U/L (40-130) 09/29/22 13:08 Troponin T Baseline 10 ng/L (0-15) 09/29/22 13:08 Total Protein 6.5 g/dL (6.6-8.7) L 09/29/22 13:08 Albumin 3.8 g/dL (3.5-5.2) 09/29/22 13:08 Globulin 2.7 g/dL (1.3-4.6) 09/29/22 13:08 Urine Opiates Screen Negative ng/mL (Negative) 09/29/22 11:36 Ur Barbiturates Screen Negative ng/mL (Negative) 09/29/22 11:36 Ur Phencyclidine Scrn Negative ng/mL (Negative) 09/29/22 11:36 Ur Amphetamines Screen Negative ng/mL (Negative) 09/29/22 11:36 U Benzodiazepines Scrn Negative ng/mL (Negative) 09/29/22 11:36 Urine Cocaine Screen Negative ng/mL (Negative) 09/29/22 11:36 U Marijuana (THC) Screen Positive ng/mL (Negative) H 09/29/22 11:36 Discharge Plan Discharge Patient Disposition: Home Clinical Impression: Marijuana use, Normal exam Condition: Stable Prescriptions: No Action losartan 50 mg tablet 50 mg PO DAILY Qty: 30 0RF Discharge Orders: Discharge ED (Routine); Ordered 09/29/22 Ordered By: Roya Casper Referrals: Tani Del Cid MD [Primary Care Provider] - Coding Level of Care Code ED Grinder Hand for Gio Hoskins
[2022-09-29 13:19] LABS: Basophils # 0.1 10^3/uL (0.0-0.1); Basophils % 0.6 %; Eosinophils # 0.1 10^3/uL (0.0-0.8); Eosinophils % 0.8 %; Hematocrit 43.1 % (42.0-52.0); Hemoglobin 13.9 g/dL (11.7-16.6); Lymphocytes # 1.4 10^3/uL (0.8-4.8); Lymphocytes % 11.4 %; Mean Corpuscular HGB Conc 32.3 g/dL (30.0-36.0); Mean Corpuscular Hemoglobin 27.9 pg (28.0-34.0); Mean Corpuscular Volume 86.5 fl (80-94); Mean Platelet Volume 8.6 fL (7.4-10.4); Monocytes # 0.7 10^3/uL (0.2-0.9); Monocytes % 5.7 %; Neutrophils # 9.61 10^3/uL (1.8-7.7); Neutrophils % 81.2 %; Nucleated Red Blood Cells % 0 %; Platelet Count 384 10^3/cmm (130-400); Red Blood Count 4.98 10^6/uL (4.1-5.3); Red Cell Distribution Width 13.4 % (12.1-15.1); White Blood Count 11.8 10^3/uL (4.0-10.0)
[2022-09-29 13:36] LABS: Alanine Aminotransferase 16 U/L (0-41); Albumin Level 3.8 g/dL (3.5-5.2); Alkaline Phosphatase 71 U/L (40-130); Anion Gap 13.2 (5-19); Aspartate Amino Transferase 19 U/L (0-40); Blood Urea Nitrogen 13 mg/dL (8-23); Calcium 8.9 mg/dL (8.5-10.5); Carbon Dioxide 27 mmol/L (22-29); Chloride 102 mmol/L (98-107); Globulin 2.7 g/dL (1.3-4.6); Glomerular Filtration Rate 114.6 mL/min (90-130); Glucose 101 mg/dL (65-115); Osmolality Calculated 286 mOsm/kg (285-295); Potassium 4.2 mmol/L (3.5-5.1); Sodium 138 mmol/L (136-145); Total Bilirubin 0.2 mg/dL (0.15-1.2); Total Protein 6.5 g/dL (6.6-8.7)
[2022-09-29 13:38] LABS: Troponin(5th) Baseline 10 ng/L (0-15)
[2022-09-29 14:12] LABS: Amphetamines Screen Urine Negative (Negative); Barbiturates Screen Urine Negative (Negative); Benzodiazepines Screen Urine Negative (Negative); Cocaine Screen Urine Negative (Negative); Opiate Screen Urine Negative (Negative); PCP Screen Urine Negative (Negative); THC Screen Urine Positive (Negative)
== END 2022-09-29 14:27 | disposition home or self-care (01) ==
PROVIDERS: Emergency Provider Physician Assistant; PCP Family Medicine
DX: F12.90 Cannabis use, unspecified, uncomplicated (principal); N18.2 Chronic kidney disease, stage 2 (mild); F17.210 Nicotine dependence, cigarettes, uncomplicated
CPT/HCPCS: 36415; 80053; 80306; 84484; 85025; 93005; 99284

== ENCOUNTER 2023-01-27 20:08 | Emergency (ER) | payer MEDICARE, SELFPAY ==
[2023-01-27 20:18] VITALS: RESP 16; BMI 21.7
[2023-01-27 21:16] VITALS: BP 154/103
[2023-01-27] MEDS: losartan 50 mg Tablet PO (21:16)
--- NOTE | 2023-01-27 21:26 | ED.C_ITS ---
HPI - Psych General: Chief Complaint: Psychiatric Symptoms Stated Complaint: SI/hypertension Time Seen by Provider: 01/27/23 20:34 History of Present Illness: 62-year-old male patient PFSH ED PFSH: Medical History Anxiety and depression CKD (chronic kidney disease), stage II Contact with and (suspected) exposure to environmental tobacco smoke (acute) (chronic) Diverticulitis History of nonmelanoma skin cancer Hx of anemia of chronic renal failure Hx of fracture of hip Surgical History History of left hip replacement History of right inguinal hernia repair Hx of hand surgery Left Family History Father Cancer unknown Denies family history of Diabetes CAD (coronary artery disease) Clotting disorder Dementia Hyperlipidemia Psychiatric illness Chronic kidney disease (CKD) Anesthesia complication Bleeding disorder Lung disease Hypertension Stroke Social History (Updated 10/03/22 @ 08:20 by Aleena Foster LPN) Smoking and tobacco status: current every day smoker cigarettes Packs smoked per day: 1 Alcohol intake: never Substance/Drug Use: current Substance/Drug use frequency: daily Other substance/drug use details: THC Lives independently: Yes Household members: family Marital status: Single Number of children: 3 Current occupational status: unemployed and disabled Current gender identity: Male Special manolo needs: No Agree to transfusion: Yes Course Vital Signs: Vital signs: Vital Signs Respiratory Rate 16 01/27/23 20:18 Blood Pressure 154/103 01/27/23 21:16 Oxygen Delivery Me thod Room Air 01/27/23 20:18 Discharge Plan Discharge Patient Disposition: Home Clinical Impression: Hypertension Condition: Stable Prescriptions: No Action losartan 50 mg tablet 50 mg PO DAILY Qty: 30 4RF Discharge Orders: Discharge ED (Routine); Ordered 01/27/23 Ordered By: Manjinder Eason Referrals: Tani Del Cid MD [Primary Care Provider] - 1-3 days Patient Instructions: Hypertension (ED) Activity Restrictions/Additional Instructions: Return for any new symptoms. Coding Level of Care Code ED Engineer System Administrator for Gio Hoskins
--- NOTE | 2023-01-27 21:29 | W.ED.GENADLT ---
HPI - General Adult General: Chief complaint: General Medical Stated complaint: SI/hypertension Time Seen by Provider: 01/27/23 20:34 History of Present Illness: 62-year-old male patient presenting with high blood pressure. He states that he is out of his losartan, and has been for the last 3 days or so. He says he has refills at [facility] pharmacy, but they are closed tonight. He is having symptoms of a mild headache he says. No other symptoms. Evidently, he told his nurse in triage, that he has suicidal thoughts. He denies any wishes or feelings of wanting to hurt himself in any way to me. He says he is not hearing voices or seeing things. He is depressed, because he is homeless. Associated symptoms: Deny chest pain, confusion, dyspnea, headache(s), nausea, rash, palpitations or vomiting Review of Systems Const: Denies: fever(s), chills or body aches Eyes: Denies: change in vision Card: Denies: chest pain or palpitations Resp: Denies: dyspnea, productive cough, non-productive cough or wheezing GI: Denies: abdominal pain, nausea, vomiting, diarrhea or hematochezia Skin/Breast: Denies: rash Neuro: Denies: headache(s), weakness in extremities, dizziness or confusion PFSH ED PFSH: Medical History Anxiety and depression CKD (chronic kidney disease), stage II Contact with and (suspected) exposure to environmental tobacco smoke (acute) (chronic) Diverticulitis History of nonmelanoma skin cancer Hx of anemia of chronic renal failure Hx of fracture of hip Surgical History History of left hip replacement History of right inguinal hernia repair Hx of hand surgery Left Family History Father Cancer unknown Denies family history of Diabetes CAD (coronary artery disease) Clotting disorder Dementia Hyperlipidemia Psychiatric illness Chronic kidney disease (CKD) Anesthesia complication Bleeding disorder Lung disease Hypertension Stroke Social History (Updated 10/03/22 @ 08:20 by Aleena Foster LPN) Smoking and tobacco status: current every day smoker cigarettes Packs smoked per day: 1 Alcohol intake: never Substance/Drug Use: current Substance/Drug use frequency: daily Other substance/drug use details: THC Lives independently: Yes Household members: family Marital status: Single Number of children: 3 Current occupational status: unemployed and disabled Current gender identity: Male Special manolo needs: No Agree to transfusion: Yes Physical Exam Const: COMMON NORMALS: no acute distress GENERAL APPEARANCE: cooperative; not ill appearing and not frail appearing HENMT: COMMON NORMALS: normocephalic, atraumatic and Normal external nose present HEAD & SCALP: normocephalic and atraumatic FACE & SINUS: normal facial exam and face symmetric NOSE: Normal external nose present Eye: COMMON NORMALS: Equal, round and reactive pupils present and EOMs intact bilaterally PUPIL: Yes Equal, round and reactive pupils present Neck/C-Spine: GENERAL: Yes trachea midline Chest: CHEST: Yes Symmetrical chest wall rise Resp: COMMON NORMALS: normal respiratory effort, No retractions, No use of accessory muscles and clear to auscultation bilaterally AUSCULTATION: clear to auscultation bilaterally Cardio: COMMON NORMALS: regular rate and regular rhythm RATE: regular rate RHYTHM: regular rhythm GI: COMMON NORMALS: Normal to inspection, nondistended, normoactive bowel sounds present Extremity: COMMON NORMALS: no pedal edema Neuro: SON COMA SCALE: document GCS findings Son coma scale eye opening: Spontaneous Son coma scale verbal response: Orientated Son coma scale motor response: [place]bey commands [place] coma scale total score: 15 SENSORY EXAM: Yes extremities (intact) Psych: COMMON NORMALS: speech normal SPEECH: Yes normal speech MOOD & AFFECT: Yes Flat affect present Skin: COMMON NORMALS: no rashes or lesions noted GENERAL SKIN EXAM: no rashes or lesions noted Course Vital Signs: Vital signs: Vital Signs Respiratory Rate 16 01/27/23 20:18 Blood Pressure 154/103 01/27/23 21:16 Oxygen Delivery Me thod Room Air 01/27/23 20:18 [facility] - General Adult Medical Decision Making 62-year-old male with hypertension. Blood pressure is 154/103. He is mildly symptomatic with a headache. He has no neurological symptoms otherwise, no focal deficits. He denies thoughts of suicide or homicide to me. He has refills at his pharmacy, which makes writing a prescription for further treatment and necessary. He is given losartan 50 mg here tonight, and allowed discharge for outpatient follow-up. He is encouraged to follow-up with his PCP in the following week, and to return for any new or concerning symptoms. Discharge Plan Discharge Patient Disposition: Home Clinical Impression: Hypertension Condition: Stable Prescriptions: No Action losartan 50 mg tablet 50 mg PO DAILY Qty: 30 4RF Discharge Orders: Discharge ED (Routine); Ordered 01/27/23 Ordered By: Manjinder Eason Referrals: Tani Del Cid MD [Primary Care Provider] - 1-3 days Patient Instructions: Hypertension (ED) Activity Restrictions/Additional Instructions: Return for any new symptoms. Coding Level of Care Code ED Metal Moulder'S Assistant for Gio Hoskins
== END 2023-01-27 21:24 | disposition home or self-care (01) ==
PROVIDERS: Emergency Provider Emergency Medicine; PCP Family Medicine
DX: I12.9 Hypertensive chronic kidney disease with stage 1 through stage 4 chronic kidney disease, or unspecified chronic kidney disease (principal); N18.2 Chronic kidney disease, stage 2 (mild); F17.210 Nicotine dependence, cigarettes, uncomplicated
CPT/HCPCS: 99283

== ENCOUNTER → 2023-04-06 10:16 | Outpatient (BNVA) | payer MEDICARE, SELFPAY | PROVIDERS: PCP Family Medicine; Referring Provider Family Medicine; Visit Provider Surgery | DX: Z12.11 Encounter for screening for malignant neoplasm of colon (principal); K21.9 Gastro-esophageal reflux disease without esophagitis | CPT/HCPCS: 99214 ==

== ENCOUNTER 2023-04-13 07:17 | Outpatient (CLI) | payer MEDICARE, SELFPAY ==
--- NOTE | 2023-04-13 07:30 | USCV_ITS ---
Xander Jhony Age: 62 Gender: M : 1960 Exam Date: 04/13/2023 07:25 Ordering Phys: Tani Del Cid MD Technologist: Teri Valadez Exam Location: [facility] [place] Indication: Screening. Long time smoker. HISTORY: Screening. Long time smoker Diameter (cm) AP x Transverse x Length Velocity (cm/s) Waveform Prox Aorta: 1.87 x 2.48 x 69.70 Mid Aorta: 2.03 x 2.30 x 73.50 Distal Aorta: 1.91 x 1.75 x 88.70 Right Iliac Prox: 0.90 x 1.31 x 190.10 Left Iliac Prox: 0.76 x 1.13 x 89.20 Stent Prox Landing x x Aneurysmal Sac Max x x Lt Lat Sac Dim Rt Lat Sac Dim Stent Dist Landing x x Right Iliac Stent x x Left Iliac Stent x x Right Renal Art Left Renal Art FINDINGS: Comparison: none available. No evidence of abdominal aortic aneurysm. Ectatic abdominal aorta with evidence of atherosclerotic plaque noted. There is evidence of atherosclerotic plaque no significan stenosis in the right common iliac artery. There is evidence of atherosclerotic plaque no significan stenosis in the left common iliac artery. CONCLUSIONS No evidence of abdominal aortic or bilateral iliac aneurysm. Ectatic abdominal aorta with evidence of atherosclerotic plaque noted. Dr. Kelsy Fowler DO (Electronically Signed) Final Date: 13 April 2023 11:13 S
--- NOTE | 2023-04-13 08:00 | CT_ITS ---
WS: [id number] LDCT LUNG CANCER SCREENING HISTORY: lung CA screening TECHNIQUE: Axial imaging performed from the apices to 1 cm below the costophrenic angles. Coronal and sagittal reformats are submitted with axial MIP series. All CT scans at [facility] use at least one of these dose optimization techniques: automated exposure control; mA and/or kV adjustment per patient size (includes targeted exams where dose is matched to clinical indication); or iterativ e reconstruction. DLP: 56.40 mGy.cm DIvol: Mean CTDIvol: 1.00 (mGy) COMPARISON: None available. Diagnostic quality: Satisfactory Lungs: Benign granulomata in the anterior RIGHT upper lobe. No mass or nodule. No pneumonia. Heart: Normal size heart with no pericardial effusion.. Other findings: Mildly ectatic atherosclerotic aorta. No aneurysm. Normal sized pulmonary artery. Lar ge calcified lymph nodes precarinal space and at the RIGHT hilum. No adenopathy. Small hiatal hernia. IMPRESSION: CT/CT lung screening [id number] LUNG-RADS: 2-Benign Appearance or Behavior FOLLOW UP: 12 Month: Continue annual screening with LDCT OTHER FINDINGS (S MODIFIER): None.
== END 2023-04-13 07:18 | disposition home or self-care (01) ==
LOC: RAD 07:17
PROVIDERS: PCP Family Medicine; Visit Provider Family Medicine
DX: Z12.2 Encounter for screening for malignant neoplasm of respiratory organs (principal); F17.219 Nicotine dependence, cigarettes, with unspecified nicotine-induced disorders; Z13.6 Encounter for screening for cardiovascular disorders; I77.811 Abdominal aortic ectasia; I70.0 Atherosclerosis of aorta
CPT/HCPCS: 71271; 76706

== ENCOUNTER 2023-06-30 07:05 | Day surgery (SDC) | payer MEDICARE, SELFPAY ==
--- NOTE | 2023-06-30 07:18 | P.ANESASSM_ITS ---
Pre-Anesthetic Assessment Height/Weight: Height 1.83 m Preop Diagnosis: screening colonoscopy GERD Operation Date: 06/30/23 08:15 Proposed Procedures p [id number] egd [id number] colon G0212 screen colon A risk : Z12.11, K21.9(Not Applicable) - Wood Thapa DO s Colonoscopy(Not Applicable) - Wood Thapa DO Familial anesthetic complications: none Was Beta Angélica taken within 24 hours: N/A Was Clonidine taken within 24 hours: N/A Last intake: last food mon Last Intake: 00:00 Social Tobacco .5 pack(s) per day 15 pack years Quit November 2022 THC 2-3 times a week smokes Exam alert, oriented x 3, clear to auscultation bilaterally and regular rate & rhythm Airway Mallampati: Class I Comments: Comments: Denies chipped History/ROS No significant history except as noted Pulmonary None reported CV/HEM None reported Kidney Stones stage 2 Hepatic None reported GI Gastroesophageal Reflux Disease occassional Metabolic None reported Musc/skel None reported Neuropsych None reported Anesthetic Plan ASA status: 2 Anesthesia: Anesthesia Evaluation and MAC Risk of > 500 ml blood loss (7ml/kg in children): No Medications/Allergies Home Medications Medication Instructions Recorded Confirmed Last Taken Type losartan 100 mg tablet 100 mg PO DAILY 06/28/23 06/30/23 06/29/23 History Allergies Allergy/AdvReac Type Severity Reaction Status Date / Time No Known Allergies Allergy Verified 06/28/23 12:33 [facility] Anesthesia Medical History Anxiety and depression History of nonmelanoma skin cancer Hx of fracture of hip Diverticulitis Hx of anemia of chronic renal failure Contact with and (suspected) exposure to environmental tobacco smoke (acute) (chronic) CKD (chronic kidney disease), stage II Surgical History (Updated 04/06/23 @ 10:57 by Wood Thapa DO) History of esophagogastroduodenoscopy (EGD) Age 21 History of right inguinal hernia repair History of left hip replacement Hx of hand surgery Left Family History Father Cancer unknown Denies family history of Diabetes CAD (coronary artery disease) Clotting disorder Dementia Hyperlipidemia Psychiatric illness Chronic kidney disease (CKD) Anesthesia complication Bleeding disorder Lung disease Hypertension Stroke Social History Smoking and tobacco/nicotine status: former use of tobacco/nicotine Quit status (tobacco/nicotine): has quit using Year quit tobacco: 11/25 Former quit date comment: 11/2022 Alcohol intake: never Substance/Drug Use: current Substance/Drug use frequency: daily Other substance/drug use details: THC Lives independently: Yes Household members: family Marital status: Single Number of children: 3 Current occupational status: unemployed and disabled Current gender identity: Male Special manolo needs: No Agree to transfusion: Yes Data Anesthesia Cardiac Studies: No Data to Display
[2023-06-30 07:19] VITALS: BP 134/88; PULSE 71; RESP 18; TEMP 36.1; O2SAT 99; BMI 21.7
[2023-06-30] MEDS: sodium chloride 0.9% 1,000 ML 30 ML IV (07:36)
--- NOTE | 2023-06-30 09:03 | P.HP_ITS ---
Providers/Chief Complaint Primary Care Provider: Tani Del Cid MD Chief Complaint: Z12.11, K21.9 History of Present Illness Jhony Terrell is a 63 year old male Review of Systems 2 General: Reports: 10 or more systems reviewed and unremarkable except in HPI and below Medications/Allergies Home Medications Medication Instructions Recorded Confirmed Last Taken Type losartan 100 mg tablet 100 mg PO DAILY 06/28/23 06/30/23 06/29/23 History Allergies Allergy/AdvReac Type Severity Reaction Status Date / Time No Known Allergies Allergy Verified 06/28/23 12:33 PFSH Acute PFSH: Medical History Anxiety and depression History of nonmelanoma skin cancer Hx of fracture of hip Diverticulitis Hx of anemia of chronic renal failure Contact with and (suspected) exposure to environmental tobacco smoke (acute) (chronic) CKD (chronic kidney disease), stage II Surgical History (Updated 04/06/23 @ 10:57 by Wood Thapa DO) History of esophagogastroduodenoscopy (EGD) Age 21 History of right inguinal hernia repair History of left hip replacement Hx of hand surgery Left Family History Father Cancer unknown Denies family history of Diabetes CAD (coronary artery disease) Clotting disorder Dementia Hyperlipidemia Psychiatric illness Chronic kidney disease (CKD) Anesthesia complication Bleeding disorder Lung disease Hypertension Stroke Social History Smoking and tobacco/nicotine status: former use of tobacco/nicotine Quit status (tobacco/nicotine): has quit using Year quit tobacco: 11/25 Former quit date comment: 11/2022 Alcohol intake: never Substance/Drug Use: current Substance/Drug use frequency: daily Other substance/drug use details: THC Lives independently: Yes Household members: family Marital status: Single Number of children: 3 Current occupational status: unemployed and disabled Current gender identity: Male Special manolo needs: No Agree to transfusion: Yes Vitals/I&O/Wt Last Vital Signs Temp 97.0 F L 06/30/23 07:19 Pulse 71 06/30/23 07:19 Resp 18 06/30/23 07:19 BP 134/88 06/30/23 07:19 Pulse Ox 99 06/30/23 07:19 O2 Del Method Room Air 06/30/23 07:19 Weight last 48 hrs Weight 160 lb A&P Assessment and plan (1) GERD (gastroesophageal reflux disease): (2) Encounter for screening for colorectal malignant neoplasm: Plan EGD and colonoscopy Attestations Medical Necessity Statement*: Home Coding Level of Care Code Acute Code for Chg Fwd Diagnoses GERD (gastroesophageal reflux disease) K21.9 Encounter for screening for colorectal malignant neoplasm Z12.11; Z12.12
[2023-06-30 09:43] VITALS: BP 113/67; PULSE 65; RESP 95; TEMP 35; O2SAT 95
[2023-06-30 10:00] VITALS: BP 114/74; PULSE 61; RESP 18; O2SAT 99
--- NOTE | 2023-06-30 13:07 | ANE.PACU2 ---
Inpatient post-anesthesia follow up: Airway intact: Yes Vital signs: Temperature 95 F Pulse Rate 61 Respiratory Rate 18 Blood Pressure 114/74 Pulse Oximetry 99 Oxygen Delivery Me thod Room Air Oxygen Flow Rate Fraction of Inspir ed Oxygen Hydration adequate: Yes Nausea and vomiting: No Pain level: 2 Mental status: Baseline
== END 2023-06-30 10:37 | disposition home or self-care (01) ==
PROVIDERS: PCP Family Medicine; Visit Provider Surgery
PROC: 0DJ08ZZ Inspection of Upper Intestinal Tract, Via Natural or Artificial Opening Endoscopic (ICD-10-PCS; CPT 43235; principal; 2023-06-30 08:15)
PROC: 0DJD8ZZ Inspection of Lower Intestinal Tract, Via Natural or Artificial Opening Endoscopic (ICD-10-PCS; CPT 45378; 2023-06-30 08:15)
DX: Z12.11 Encounter for screening for malignant neoplasm of colon (principal); K21.9 Gastro-esophageal reflux disease without esophagitis; K57.30 Diverticulosis of large intestine without perforation or abscess without bleeding; K29.80 Duodenitis without bleeding; K20.90 Esophagitis, unspecified without bleeding; D12.5 Benign neoplasm of sigmoid colon; Q84.6 Other congenital malformations of nails; D12.8 Benign neoplasm of rectum; Z85.828 Personal history of other malignant neoplasm of skin; N18.2 Chronic kidney disease, stage 2 (mild); Z87.891 Personal history of nicotine dependence
CPT/HCPCS: 43239; 45385; 88305; J2704; J7030

== ENCOUNTER → 2023-07-17 10:31 | Outpatient (BNVA) | payer MEDICARE, SELFPAY | PROVIDERS: PCP Family Medicine; Visit Provider Surgery | DX: Z09 Encounter for follow-up examination after completed treatment for conditions other than malignant neoplasm (principal); K22.70 Barrett's esophagus without dysplasia; K29.80 Duodenitis without bleeding | CPT/HCPCS: 99214 ==

== ENCOUNTER → 2024-05-13 07:51 | Outpatient (BNVA) | payer MEDICARE, SELFPAY | PROVIDERS: PCP Family Medicine; Visit Provider Surgery | DX: K21.9 Gastro-esophageal reflux disease without esophagitis (principal); K22.70 Barrett's esophagus without dysplasia; K52.9 Noninfective gastroenteritis and colitis, unspecified; D37.4 Neoplasm of uncertain behavior of colon | CPT/HCPCS: 99214 ==

== ENCOUNTER → 2024-07-09 09:09 | Outpatient (BNVA) | payer MEDICARE, OTHER, SELFPAY | PROVIDERS: PCP Family Medicine; Visit Provider Surgery | DX: Z12.11 Encounter for screening for malignant neoplasm of colon (principal) | CPT/HCPCS: 99024; 99214 ==

== ENCOUNTER 2024-07-25 06:22 | Day surgery (SDC) | payer OTHER, SELFPAY ==
[2024-07-25 06:39] VITALS: BP 176/111; PULSE 124; RESP 22; TEMP 36.4; O2SAT 99; BMI 25.7
--- NOTE | 2024-07-25 06:46 | P.HPUD_ITS ---
Surgery/Procedure H&P Update DATE OF PROCEDURE: July 25, 2024 DATE H&P PERFORMED: 07/09/24 H&P UPDATE INFORMATION: I have reviewed H&P completed within last 30 days, I have examined patient prior to procedure, No changes to prior documentation and H&P is in [facility] EMR on date indicated PLANNED PROCEDURE: Operation Date: 07/25/24 07:40 Proposed Procedures p Colonoscopy 64370, G0105, Z12.11(Not Applicable) - Ra Webster MD
--- NOTE | 2024-07-25 06:46 | W.PM.OPSUD ---
Surgery/Procedure H&P Update DATE OF PROCEDURE: July 25, 2024 DATE H&P PERFORMED: 07/09/24 H&P UPDATE INFORMATION: I have reviewed H&P completed within last 30 days, I have examined patient prior to procedure, No changes to prior documentation and H&P is in [facility] EMR on date indicated PLANNED PROCEDURE: Operation Date: 07/25/24 07:40 Proposed Procedures p Colonoscopy 39677, G0105, Z12.11(Not Applicable) - Ra Webster MD
[2024-07-25] MEDS: sodium chloride 0.9% 500 ML 999 ML IV (06:52)
--- NOTE | 2024-07-25 06:55 | ANES.PREANE2 ---
Pre-Anesthetic Assessment Height/Weight: Height 1.8 m Weight 83.915 kg Temp Pulse Resp BP Pulse Ox O2 Del Method 97.5 F L 124 H 22 H 176/111 99 Room Air 07/25/24 06:39 07/25/24 06:39 07/25/24 06:39 07/25/24 06:39 07/25/24 06:39 07/25/24 06:39 Preop Diagnosis: Screening Operation Date: 07/25/24 07:40 Proposed Procedures p Colonoscopy 36340, G0105, Z12.11(Not Applicable) - Ra Webster MD Familial anesthetic complications: slow to wake up Was Beta Angélica taken within 24 hours: N/A Was Clonidine taken within 24 hours: N/A Last intake: Intake Last Liquid Date 07/24/24 Last Liquid Time 20:00 Last Solid Date 07/23/24 Last Solid Time 18:00 Social No alcohol and No tobacco Cannabis use daily Exam alert, oriented x 3, clear to auscultation bilaterally and regular rate & rhythm Airway Submandibular: within normal limits Cervical ROM: within normal limits Mallampati: Class II Dentition: chipped Comments: Comments: very poor dentition multiple chipped and missing. Pulmonary None reported CV/HEM Hypertension None reported Hepatic None reported GI Gastroesophageal Reflux Disease Metabolic None reported Musc/skel None reported Neuropsych Anxiety Anesthetic Plan ASA status: 3 Anesthesia: MAC Other: Patient very aggressive states he is not anxious or nervous, seems angry he has already done this prior which resulted in a poor prep. Medications/Allergies Home Medications ?Medication ?Instructions ?Recorded ?Confirmed ?Last Taken ?Type losartan 100 mg tablet 100 mg PO DAILY #90 tabs 02/19/24 07/25/24 07/24/24 Rx pantoprazole 40 mg tablet,delayed 40 mg PO BID 6 weeks #84 tabs 05/13/24 07/25/24 07/24/24 Rx release (Protonix) ondansetron 8 mg disintegrating 8 mg PO Q8H PRN nausea and 07/09/24 07/25/24 Unknown Rx tablet vomiting #3 tabs polyethylene glycol 3350 17 17 g PO DAILY 5 days #238 grams 07/09/24 07/25/24 07/24/24 Rx gram/dose oral powder (Miralax) Allergies Allergy/AdvReac Type Severity Reaction Status Date / Time No Known Allergies Allergy Verified 07/22/24 09:59 Current Medications Generic Name Dose Route Start Last Admin Trade Name Freq PRN Reason Stop Dose Admin Sodium Chloride 500 mls @ 999 mls/hr 07/25/24 06:28 07/25/24 06:52 Sodium Chloride 0.9% IV 999 mls/hr .Q31M PRN Administration HYPOTENSION PFSH Anesthesia Medical History Anxiety and depression History of nonmelanoma skin cancer Hx of fracture of hip Diverticulitis Hx of anemia of chronic renal failure Contact with and (suspected) exposure to environmental tobacco smoke (acute) (chronic) CKD (chronic kidney disease), stage II Surgical History History of esophagogastroduodenoscopy (EGD) Age 21 History of right inguinal hernia repair History of left hip replacement Hx of hand surgery Left Family History Father Cancer unknown Denies family history of Diabetes CAD (coronary artery disease) Clotting disorder Dementia Hyperlipidemia Psychiatric illness Chronic kidney disease (CKD) Anesthesia complication Bleeding disorder Lung disease Hypertension Stroke Social History Smoking and tobacco/nicotine status: former use of tobacco/nicotine Quit status (tobacco/nicotine): has quit using Year quit tobacco: 11/25 Former quit date comment: 11/2022 Alcohol intake: never Substance/Drug Use: current Substance/Drug use frequency: daily Other substance/drug use details: THC Lives independently: Yes Household members: family Marital status: Single Number of children: 3 Current occupational status: unemployed and disabled Current gender identity: Male Special manolo needs: No Agree to transfusion: Yes Data Anesthesia Cardiac Studies: No Data to Display
--- NOTE | 2024-07-25 07:14 | PC.NURSE ---
Patient was irate during pre-op, yelling at staff. Patient refused to put a signature on the consent and just marked a line through the consent.
[2024-07-25 08:07] VITALS: BP 114/78; PULSE 89; RESP 14; TEMP 36.3; O2SAT 92
[2024-07-25 08:17] VITALS: BP 115/79; PULSE 83; RESP 16; O2SAT 95
[2024-07-25 08:28] VITALS: BP 130/93; PULSE 84; RESP 18; O2SAT 99
--- NOTE | 2024-07-25 08:54 | ANE.PACU2 ---
Inpatient post-anesthesia follow up: Airway intact: Yes Vital signs: Temperature 97.4 F Pulse Rate 84 Respiratory Rate 18 Blood Pressure 130/93 Pulse Oximetry 99 Oxygen Delivery Me thod Room Air Oxygen Flow Rate Fraction of Inspir ed Oxygen Hydration adequate: Yes Nausea and vomiting: No Pain level: 1 Mental status: Baseline
== END 2024-07-25 08:54 | disposition home or self-care (01) ==
PROVIDERS: PCP Family Medicine; Visit Provider Surgery
PROC: 0DJD8ZZ Inspection of Lower Intestinal Tract, Via Natural or Artificial Opening Endoscopic (ICD-10-PCS; CPT 45378; principal; 2024-07-25 07:40)
DX: Z12.11 Encounter for screening for malignant neoplasm of colon (principal); D12.2 Benign neoplasm of ascending colon; K63.5 Polyp of colon; K62.1 Rectal polyp; K08.89 Other specified disorders of teeth and supporting structures; K08.409 Partial loss of teeth, unspecified cause, unspecified class; K21.9 Gastro-esophageal reflux disease without esophagitis; Z79.899 Other long term (current) drug therapy; I12.9 Hypertensive chronic kidney disease with stage 1 through stage 4 chronic kidney disease, or unspecified chronic kidney disease; N18.2 Chronic kidney disease, stage 2 (mild); F41.9 Anxiety disorder, unspecified; F32.A Depression, unspecified; Z96.642 Presence of left artificial hip joint; Z87.891 Personal history of nicotine dependence
CPT/HCPCS: 45380; 45385; 88305; J2250; J2704; J7040

== ENCOUNTER → 2025-02-04 11:32 | Outpatient (BNVA) | payer OTHER, SELFPAY | PROVIDERS: PCP Family Medicine; Visit Provider Family Medicine | DX: Z12.5 Encounter for screening for malignant neoplasm of prostate (principal); Z13.6 Encounter for screening for cardiovascular disorders | CPT/HCPCS: 80053; 80061; 84153; 85025 ==

== ENCOUNTER 2025-02-23 12:15 | Emergency (ER) | payer OTHER, MEDICAID, SELFPAY ==
[2025-02-23 12:21] VITALS: BP 114/75; PULSE 112; RESP 18; TEMP 37.1; O2SAT 95; BMI 27.3
--- NOTE | 2025-02-23 12:35 | ED_ITS ---
HPI - Extremity Problem General: Chief complaint: Extremity Injury, Lower Stated complaint: L hip pain, redness Time Seen by Provider: 02/23/25 12:24 Source: patient and family Mode of arrival: ambulatory Limitations: no limitations History of Present Illness: Patient is a 64-year-old male here with his significant other due to concerns that his left hip prosthesis is eroding out . Patient underwent left hip arthroplasty by Dr. Fischer in 2019. States he has not had any issues with the hip replacement. He states recently he noticed 3 small bumps near the incision site and believes these may need pins trying to erode out of his hip replacement. He also feels like he can palpate something underlying the incision. He has not noticed any significant redness or warmth. He is ambulatory here without difficulty or assistance. MD Complaint: joint pain Onset (ago): day(s) Location: left and lower extremity (hip) Radiation: none Relieving factors: nothing Exacerbating factors: nothing Associated symptoms: Reports no associated symptoms; Deny chest pain, fever(s) or rash Related Data Previous Rx's ?Medication ?Instructions ?Recorded losartan 100 mg tablet 100 mg PO DAILY #90 tabs 07/30 pantoprazole 40 mg tablet,delayed 40 mg PO QAM PRN aci d reflux #60 02/04/25 release (Protonix) tabs Allergies Allergy/AdvReac Type Severity Reaction Status Date / Time No Known Allergies Allergy Verified 02/23/25 12:28 Review of Systems Const: Denies: fever(s), chills, body aches, fatigue or malaise Card: Denies: chest pain Resp: Denies: dyspnea Musc: Reports: joint pain; Denies: neck pain, back pain, extremity pain, extremity swelling, joint swelling, joint redness, joint warmth, joint stiffness, limited range of motion, muscle cramps or muscle weakness Skin/Breast: Denies: rash Neuro: Denies: numbness in extremities, weakness in extremities, sensory guzmán ges or difficulty walking [facility] ED PFSH: Medical History Anxiety and depression History of nonmelanoma skin cancer Hx of fracture of hip Diverticulitis Hx of anemia of chronic renal failure Contact with and (suspected) exposure to environmental tobacco smoke (acute) (chronic) CKD (chronic kidney disease), stage II Surgical History History of esophagogastroduodenoscopy (EGD) Age 21 History of right inguinal hernia repair History of left hip replacement Hx of hand surgery Left Family History Father Cancer unknown Denies family history of Diabetes CAD (coronary artery disease) Clotting disorder Dementia Hyperlipidemia Psychiatric illness Chronic kidney disease (CKD) Anesthesia complication Bleeding disorder Lung disease Hypertension Stroke Social History Smoking and tobacco/nicotine status: former use of tobacco/nicotine Quit status (tobacco/nicotine): has quit using Year quit tobacco: 11/25 Former quit date comment: 11/2022 Alcohol intake: never Substance/Drug Use: current Substance/Drug use frequency: daily Other substance/drug use details: THC Lives independently: Yes Household members: family Marital status: Single Number of children: 3 Current occupational status: unemployed and disabled Current gender identity: Male Special manolo needs: No Agree to transfusion: Yes Physical Exam Const: COMMON NORMALS: no acute distress, average body habitus, patient orient ed x3, no limitations, healthy appearing, alert and well nourished Back/Pelvis: COMMON NORMALS: thoracic and lumbar spine normal to inspection, no thoracic nor lumbar tenderness, thoraco-lumbar ROM normal and straight leg raise negative bilaterally Extremity: COMMON NORMALS: normal to inspection, full ROM, capillary refill normal, no joint enlargement, no clubbing, cyanosis or edema, no calf tenderness and no pedal edema GENERAL: Yes normal exam except as noted LEFT LOWER EXTREMITY: Yes hip joint (see below) Left hip: Yes ROM (normal) and Yes neurovascular exam (normal) OTHER: surgical incision site of L hip appears normal; he has 3 small follicular like lesions near incision; there is no cellulitis/erythema/warmth/discharge; full ROM; he reports he can feel something hard underneath incision but when I palpate it seems this is just his greater tubercle of his femur-showed him on contralateral side as well Neuro: COMMON NORMALS: patient oriented x3, moves all extremities, no focal motor deficits, no sensory deficits noted and gait normal SENSORIUM/ORIENTATION: Yes alert Skin: NARRATIVE SKIN EXAM: see above Course Vital Signs: Vital signs: Vital Signs Temperature 98.7 F 02/23/25 12:21 Pulse Rate 112 H 02/23/25 12:21 Respiratory Rate 18 02/23/25 12:21 Blood Pressure 114/75 02/23/25 12:21 Pulse Oximetry 95 02/23/25 12:21 MDM - Extremity (Nontraumatic) Medical Decision Making Left hip XR showing an intact and normal-appearing prosthesis. Reassurance given. Did discuss how he can follow-up with orthopedics if he wished but he declines. States he will follow-up with primary care. Medical Records I reviewed the patient's medical records. XR interpretation done by ED provider, pending radiology final review Discharge Plan Discharge Patient Disposition: Home Clinical Impression: Pain at surgical incision Condition: Stable Prescriptions: No Action losartan 100 mg tablet 100 mg PO DAILY Qty: 90 1RF Protonix 40 mg tablet,delayed release (DR/EC) 40 mg PO QAM PRN (Reason: acid reflux) Qty: 60 1RF Discharge Orders: Discharge ED (Routine); Ordered 02/23/25 Ordered By: Roya Casper Referrals: Tani Del Cid MD [Primary Care Provider, Family Practice] Patient Instructions: Patient Portal & Kaylyn Instructions Activity Restrictions/Additional Instructions: As we discussed, your hip prosthesis on today's x-ray appears normal. We discussed follow-up with orthopedics but you would like to follow-up with your primary care provider. 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
--- NOTE | 2025-02-23 12:35 | XRR_ITS ---
PROCEDURE INFORMATION: Exam: XR Left Hip Exam date and time: 02/23/2025 12:40 PM Age: 64 years old Clinical indication: Hip pain; Left hip; Prior surgery; Surgery date: 6+ months; Surgery type: Lt hip repair TECHNIQUE: Imaging protocol: Radiologic exam of the left hip. Views: 2 or 3 views hip with pelvis when performed. COMPARISON: CT abdomen pelvis w con* [id number] 05/08/2020 11:54 AM FINDINGS: Bones/joints: Total hip replacement. Anatomic alignment. Bone metal are intact. No fracture or dislocation. No acute fracture. Soft tissues: Unremarkable. XR/XR hip LT 2-3V wo/w pel* [id number] IMPRESSION: Normal following replacement.
[2025-02-23 13:20] VITALS: BP 102/67; PULSE 81; O2SAT 94
== END 2025-02-23 13:21 | disposition home or self-care (01) ==
PROVIDERS: Emergency Provider Physician Assistant; PCP Family Medicine
DX: G89.18 Other acute postprocedural pain (principal); Z96.642 Presence of left artificial hip joint; Z98.890 Other specified postprocedural states
CPT/HCPCS: 73502; 99283